=== PATIENT | female | born 1940 | race Caucasian/White ===

== ENCOUNTER → 2018-05-20 10:38 | Outpatient (CLI) | payer MEDICARE, BC, SELFPAY ==
--- NOTE | 2018-05-20 | DI.CT.S_ITS ---
PROCEDURE: CT KIDNEY URETER BLADDER (KUB) INDICATIONS: HYDRONEPHROSIS TECHNIQUE: Noncontrast 5 mm thick sections acquired from the diaphragms to the symphysis. 5 mm thick coronal and sagittal reformats were then performed. For radiation dose reduction, the following was used: automated exposure control, adjustment of mA and/or kV according to patient size. COMPARISON: [facility], [place], PET/CT WHOLE BODY EXTENDED, 08/18/2017, 10:11. [facility], CT, THORAX WITHOUT CONTRAST, 07/22/2017, 14:07. [facility], CT, KIDNEY/ URETER/BLADDER, 07/14/2017, 9:49. FINDINGS: Image quality: Excellent. Lung bases: There is increase in size of a partially visualized right lower lobe spiculated nodule measuring up to 2.1 x 1.7 cm in transverse dimension. Heart size is normal. Urinary system: There is moderate right hydronephrosis redemonstrated with a transition at the ureteropelvic junction, similar in appearance to the prior study. There is iso-to slightly hyperattenuation redemonstrated within the right renal collecting system. There is a new right ureteral stent with the proximal coil in the renal pelvis and the distal component in the urinary bladder. Ureters are non-distended. No calcified renal stones. There is no left hydronephrosis. Bilateral renal cysts are redemonstrated. Bladder wall thickness is normal; no calcified bladder stones. Other solid organs: Liver is normal in size. Gallbladder is nondistended without calcified gallstones. Pancreas is normal in contours. Spleen is normal in size. No adrenal nodules. Peritoneum and bowel: Unenhanced bowel loops demonstrate normal wall thickness and caliber. The appendix is normal in appearance. There is colonic diverticulosis without diverticulitis. No free fluid or air. Nodes and vessels: No retroperitoneal or mesenteric adenopathy by size criteria. Aorta and inferior vena cava are normal in caliber. Abdominal wall: No ventral hernias. Pelvis: No free pelvic fluid. No inguinal hernias or adenopathy. Bones: No suspicious bony lesions. There is an old left proximal femur fracture status post ORIF. There is a mild superior endplate compression deformity of the T11 vertebral body redemonstrated. IMPRESSION: 1. 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 Recommend histologic diagnosis. 2. Persistent moderate right hydronephrosis status post placement of a right ureteral stent. 3. Diverticulosis without acute diverticulitis. Dictated by: Rivera Clarke M.D. on 05/20/2018 at 11:36 Approved by: Rivera Clarke M.D. on 05/20/2018 at 12:05
== END ==
PROVIDERS: PCP Internal Medicine; Visit Provider Urology
DX: N13.30 Unspecified hydronephrosis (principal); K57.90 Diverticulosis of intestine, part unspecified, without perforation or abscess without bleeding; R91.1 Solitary pulmonary nodule
CPT/HCPCS: 74176

== ENCOUNTER → 2018-06-14 12:24 | Outpatient (CLI) | payer MEDICARE, BC, SELFPAY ==
[2018-06-14 13:06] LABS: Add Manual Diff / Slide Review NO; Basophils Percent Auto 0.2 % (0-2); Eosinophils Percent Auto 2.2 % (2-4); Hemoglobin 11.8 g/dL (12.0-16.0); Lymphocytes Percent Auto 23.3 % (25-40); Mean Corpuscular HGB Conc 33.6 % (30-36); Mean Corpuscular Hemoglobin 31.5 PG (26-34); Mean Corpuscular Volume 93.7 fL (80-100); Neutrophils Absolute Auto 2800 /uL (3000-5900); Neutrophils Percent Auto 62.3 % (50-75); Platelet Count 190 X10^3/uL (150-400); Red Blood Cell Count 3.73 X10^6/uL (4.0-5.2); Red Cell Distribution Width 13.8 % (11.6-14.8); White Blood Cell Count 4.5 X10^3/uL (4.5-11.0)
[2018-06-14 13:36] LABS: Phosphorous 4.4 mg/dL (2.8-4.1)
[2018-06-14 13:38] LABS: BUN Creatinine Ratio 14.3 (6-22); Blood Urea Nitrogen 50 mg/dL (7-17); Calcium 8.9 mg/dL (8.4-10.2); Carbon Dioxide 24 mmol/L (22-32); Chloride 106 mmol/L (98-107); Estimated Glomerular Filt Rate 12.7 mL/min (>60); Glucose 105 mg/dL (80-110); HEMOLYSIS < 15 (0-50); Potassium 4.9 mmol/L (3.4-5.1); Sodium 139 mmol/L (137-145)
[2018-06-14 13:50] LABS: Free T3, Triiodothyronine Free 2.29 pg/mL (2.77-5.27)
[2018-06-14 14:03] LABS: Thyroid Stimulating Hormone 2.59 uIU/mL (0.47-4.68)
[2018-06-14 14:11] LABS: Ferritin 18.2 ng/mL (11.1-264)
[2018-06-16 14:48] LABS: Parathyroid Hormone Int 145 pg/mL (14-64)
== END ==
PROVIDERS: PCP Internal Medicine; Referring Provider Urology; Visit Provider Student in an Organized Health Care Education/Training Program
DX: N05.9 Unspecified nephritic syndrome with unspecified morphologic changes (principal); I50.32 Chronic diastolic (congestive) heart failure; D50.0 Iron deficiency anemia secondary to blood loss (chronic); D64.9 Anemia, unspecified; E83.30 Disorder of phosphorus metabolism, unspecified; N25.81 Secondary hyperparathyroidism of renal origin; N13.30 Unspecified hydronephrosis; E03.9 Hypothyroidism, unspecified
CPT/HCPCS: 36415; 80048; 82728; 83880; 83970; 84100; 84439; 84443; 84481; 85025

== ENCOUNTER 2018-06-28 13:52 | Emergency (ER) | payer MEDICARE, BC, SELFPAY ==
[2018-06-28 13:56] VITALS: BP 114/54; PULSE 60; RESP 16; TEMP 36; O2SAT 96; BMI 25.8
--- NOTE | 2018-06-28 14:05 | ED.ALLEREA ---
HPI - Allergic Reaction <Rayne Alexandre PA-C - Last Filed: 06/28/18 21:09> General Chief complaint: Allergic Reaction Stated complaint: allergic rx to a medication Time Seen by Provider: 06/28/18 14:04 Source: patient Mode of arrival: ambulatory Limitations: no limitations History of Present Illness HPI narrative: This 77-year-old female comes in due to possible allergic reaction. She states that she took a dose of Cipro for UTI at about noon. She has not taken that in many years. About 30 min later, she started to have itching on her upper thighs that progressed down her legs, feet, and also affected her hands. She states that she started to get a little bit of rash on her inner thighs. She states that she took a dose of Benadryl and she does not think she has rash now, still has itching especially in her hands. She denies any sensation of her throat closing or swelling. She denies any facial swelling or dyspnea. She denies any wheeze. She denies any chest pain. She denies any nausea or vomiting. She states that during the course of this, she got up to do some dishes and felt ?dizzy?, which she describes as lightheaded, like she would pass out. She states that she sat down right away, otherwise ?I would of hit the floor, I saw the white light?, and she states that the dizziness persisted for about 0.5 hr. This has completely resolved and she states she is feeling fine now aside from the itching in her hands. She has not had any difficulty with walking (using her walker as usual) or extremity weakness. No difficulty with speech or swallowing. No headache or vision change Related Data Home Medications Medication Instructions Recorded Confirmed Disabled Parking Permit 1 ea MISCELLANEOUS DIRECTED 06/28/18 06/28/18 Walker: Heavy Duty Front Wheeled 1 units MISCELLANEOUS DIRECTED 06/28/18 06/28/18 calcitriol 1 cap PO MOWEFR 06/28/18 06/28/18 cholecalciferol (vitamin D3) 1,000 unit PO BID 06/28/18 06/28/18 [Vitamin D3] diphenhydramine HCl [Benadryl] 1 dose PO .ONCE 06/28/18 06/28/18 Previous Rx's Medication Instructions Recorded levothyroxine 25 mcg PO QAM #30 tab 12/23/16 metoprolol tartrate 25 mg PO BID #180 tab 02/21/18 hydralazine 25 mg tablet 25 mg PO BID #180 tab 05/09/18 Allergies Allergy/AdvReac Type Severity Reaction Status Date / Time ciprofloxacin [From Cipro] Allergy Severe severe Verified 06/28/18 14:55 itching erythromycin base Allergy Mild nausea Verified 06/28/18 14:55 [ERYTHROMYCIN BASE] Review of Systems <Rayne Alexandre PA-C - Last Filed: 06/28/18 21:09> Review of Systems All systems reviewed & are unremarkable except as noted in HPI and below Exam <Rayne Alexandre PA-C - Last Filed: 06/28/18 21:09> Narrative Exam Narrative: GENERAL APPEARANCE: Patient sitting comfortably, in no distress. HEAD: No sinus TTP. EYES: PERRL, EOMI. EARS: Normal auditory canals, right TM partially occluded by cerumen, TM is dull, left is normal ORAL CAVITY: Normal oropharynx. THROAT: PND noted, no erythema or exudate NECK/THYROID: Neck supple, full range of motion, no cervical lymphadenopathy. LUNGS: Clear to auscultation bilaterally HEART: RRR without murmur, nl S1, S2, no S3 or S4. ABDOMEN: Soft, nontender, nondistended, +bowel sounds x4 quadrants EXTREMITIES: 1+ pitting bilaterally, no cyanosis or calf tenderness NEUROLOGIC: Alert and oriented with normal speech and coordination, ambulates easily with her walker DERMATOLOGIC: No exanthem Initial Vital Signs Initial Vital Signs: Vital Signs Temperature 96.8 F L 06/28/18 13:56 Pulse Rate 60 06/28/18 13:56 Respiratory Rate 16 06/28/18 13:56 Blood Pressure 114/54 L 06/28/18 13:56 Pulse Oximetry 96 06/28/18 13:56 <Kaiden Cervantes DO - Last Filed: 06/29/18 07:13> Initial Vital Signs Initial Vital Signs: Vital Signs Temperature 96.8 F L 06/28/18 13:56 Pulse Rate 60 06/28/18 13:56 Respiratory Rate 16 06/28/18 13:56 Blood Pressure 114/54 L 06/28/18 13:56 Pulse Oximetry 96 06/28/18 13:56 Course <Rayne Alexandre PA-C - Last Filed: 06/28/18 21:09> Additional Information: Patient reported feeling markedly better after receiving Benadryl and Solu-Medrol. She states exanthem had resolved and she felt ready to go home. She did not have any lightheadedness while here, nor any neuro deficit or cardiopulmonary complaints. Reviewed findings with Dr. Cervantes who agreed with d/c plan Orders Ordered: Discontinued Medications Diphenhydramine HCl (Benadryl) 25 mg IV NOW ONE Stop: 06/28/18 14:34 Last Admin: 06/28/18 14:56 Dose: 25 mg Sodium Chloride (Normal Saline 0.9%) 1,000 mls @ 1,000 mls/hr IV BOLUS ONE Stop: 06/28/18 15:32 Last Infusion: 06/28/18 16:14 Dose: 0 mls/hr Admin: 06/28/18 14:56 Dose: 1,000 mls/hr Methylprednisolone (Solu-Medrol 125 Mg Vial) 60 mg IV NOW ONE Stop: 06/28/18 14:34 Last Admin: 06/28/18 14:55 Dose: 60 mg Vital Signs - 8 hr 06/28/18 13:56 06/28/18 14:53 06/28/18 15:30 Temperature 96.8 F L Pulse Rate 60 61 71 Respiratory Rate 16 13 13 Blood Pressure 114/54 L Blood Pressure [Right Arm] 140/60 H 139/61 H Pulse Oximetry 96 99 98 06/28/18 16:04 Temperature Pulse Rate 74 Respiratory Rate 13 Blood Pressure Blood Pressure [Right Arm] 142/57 H Pulse Oximetry 100 <Kaiden Cervantes DO - Last Filed: 06/29/18 07:13> Orders Ordered: Discontinued Medications Diphenhydramine HCl (Benadryl) 25 mg IV NOW ONE Stop: 06/28/18 14:34 Last Admin: 06/28/18 14:56 Dose: 25 mg Sodium Chloride (Normal Saline 0.9%) 1,000 mls @ 1,000 mls/hr IV BOLUS ONE Stop: 06/28/18 15:32 Last Infusion: 06/28/18 16:14 Dose: 0 mls/hr Admin: 06/28/18 14:56 Dose: 1,000 mls/hr Methylprednisolone (Solu-Medrol 125 Mg Vial) 60 mg IV NOW ONE Stop: 06/28/18 14:34 Last Admin: 06/28/18 14:55 Dose: 60 mg Vital Signs - 8 hr 06/28/18 13:56 06/28/18 14:53 06/28/18 15:30 Temperature 96.8 F L Pulse Rate 60 61 71 Respiratory Rate 16 13 13 Blood Pressure 114/54 L Blood Pressure [Right Arm] 140/60 H 139/61 H Pulse Oximetry 96 99 98 06/28/18 16:04 Temperature Pulse Rate 74 Respiratory Rate 13 Blood Pressure Blood Pressure [Right Arm] 142/57 H Pulse Oximetry 100 MDM - Allergic Reaction <Rayne Alexandre PA-C - Last Filed: 06/28/18 21:09> Lab Data Result diagrams: 06/28/18 14:45 06/28/18 14:45 Lab Results 06/28/18 06/28/18 Range/Units 14:45 14:45 WBC 7.5 (4.5-11.0) X10^3/uL RBC 3.95 L (4.0-5.2) X10^6/uL Hgb 12.4 (12.0-16.0) g/dL Hct 37.1 (36-46) % MCV 93.9 (80-100) fL MCH 31.4 (26-34) PG MCHC 33.5 (30-36) % RDW 13.8 (11.6-14.8) % Plt Count 210 (150-400) X10^3/uL Neut % (Auto) 76.3 H (50-75) % Lymph % (Auto) 12.6 L (25-40) % [place] % (Auto) 9.3 (3-14) % Eos % (Auto) 1.2 L (2-4) % Baso % (Auto) 0.6 (0-2) % Neut # (Auto) 5700 (7539-5064) /uL Sodium 137 (137-145) mmol/L Potassium 4.6 (3.4-5.1) mmol/L Chloride 106 (98-107) mmol/L Carbon Dioxide 22 (22-32) mmol/L BUN 58 H (7-17) mg/dL Creatinine 3.40 H (0.52-1.04) mg/dL Estimated GFR 13.1 L (>60) mL/min BUN/Creatinine Ratio 17.1 (6-22) Glucose 106 (80-110) mg/dL Calcium 8.7 (8.4-10.2) mg/dL Total Bilirubin 0.5 (0.2-1.3) mg/dL AST 16 (14-36) IU/L ALT 17 (9-52) IU/L Alkaline Phosphatase 64 (38-126) U/L Total Creatine Kinase 131 (30-135) U/L CK-MB (CK-2) 2.30 (<2.37) ng/mL CK-MB (CK-2) Rel Index 1.8 (1.5-5.0) % Troponin I < 0.012 (0.01-0.034) ng/mL Total Protein 6.3 (6.3-8.2) g/dL Albumin 3.7 (3.5-5.0) g/dL Globulin 2.6 (1.7-4.1) g/dL Albumin/Globulin Ratio 1.4 (1.0-2.8) ECG Data Attestation: I personally reviewed and interpreted this ECG as follows: (Normal sinus rhythm with a rate 68, normal axis, chronic ST changes in V4) Prior ECG tracings: available for review <Kaiden Cervantes DO - Last Filed: 06/29/18 07:13> Lab Data Lab Results 06/28/18 06/28/18 Range/Units 14:45 14:45 WBC 7.5 (4.5-11.0) X10^3/uL RBC 3.95 L (4.0-5.2) X10^6/uL Hgb 12.4 (12.0-16.0) g/dL Hct 37.1 (36-46) % MCV 93.9 (80-100) fL MCH 31.4 (26-34) PG MCHC 33.5 (30-36) % RDW 13.8 (11.6-14.8) % Plt Count 210 (150-400) X10^3/uL Neut % (Auto) 76.3 H (50-75) % Lymph % (Auto) 12.6 L (25-40) % [place] % (Auto) 9.3 (3-14) % Eos % (Auto) 1.2 L (2-4) % Baso % (Auto) 0.6 (0-2) % Neut # (Auto) 5700 (4487-0874) /uL Sodium 137 (137-145) mmol/L Potassium 4.6 (3.4-5.1) mmol/L Chloride 106 (98-107) mmol/L Carbon Dioxide 22 (22-32) mmol/L BUN 58 H (7-17) mg/dL Creatinine 3.40 H (0.52-1.04) mg/dL Estimated GFR 13.1 L (>60) mL/min BUN/Creatinine Ratio 17.1 (6-22) Glucose 106 (80-110) mg/dL Calcium 8.7 (8.4-10.2) mg/dL Total Bilirubin 0.5 (0.2-1.3) mg/dL AST 16 (14-36) IU/L ALT 17 (9-52) IU/L Alkaline Phosphatase 64 (38-126) U/L Total Creatine Kinase 131 (30-135) U/L CK-MB (CK-2) 2.30 (<2.37) ng/mL CK-MB (CK-2) Rel Index 1.8 (1.5-5.0) % Troponin I < 0.012 (0.01-0.034) ng/mL Total Protein 6.3 (6.3-8.2) g/dL Albumin 3.7 (3.5-5.0) g/dL Globulin 2.6 (1.7-4.1) g/dL Albumin/Globulin Ratio 1.4 (1.0-2.8) Discharge Plan Departure Patient Disposition: Home Clinical Impression: Allergic reaction caused by a drug, Syncope, near Discharge Date/Time: 06/28/18 16:27 Interventions: ED Discharge Assessment Last Done: 06/28/18 16:27 Instructions: DI for Adverse Drug Reaction -- Allergic Activity Restrictions/Additional Instructions: There is not any evidence of a heart or neurologic problem today on your exam or testing. You should return if you have lightheadedness again or other new worsening symptoms. Most likely this was part of the allergic reaction you had and it is okay to monitor at home since this is improved. Please check with Dr. Araiza's office and let them know that you have had absolutely no urinary symptoms despite not starting the antibiotic last week, and ask if this is really needed or whether they think you could have bacteria in the urine without actual infection Prescriptions: No Action levothyroxine 25 MCG tablet 25 mcg PO QAM Qty: 30 RF: 5 metoprolol tartrate 25 MG tablet 25 mg PO BID Qty: 180 RF: 1 hydralazine 25 mg tablet 25 mg PO BID Qty: 180 RF: 0 calcitriol 0.25 mcg capsule 1 cap PO MOWEFR RF: 0 Disabled Parking Permit 1 ea miscellaneous DIRECTED RF: 0 Walker: Heavy Duty Front Wheeled 1 units miscellaneous DIRECTED RF: 0 diphenhydramine HCl [Benadryl] 25 mg Capsule 1 dose PO .ONCE RF: 0 cholecalciferol (vitamin D3) [Vitamin D3] 1,000 unit Capsule 1,000 unit PO BID RF: 0 Referrals: Delvin Araiza MD [Non-Staff] - Bhavani Ledesma ARNP [Primary Care Provider] - <Kaiden Cervantes DO - Last Filed: 06/29/18 07:13> Cosign ED Attending Octavio Attestation: I was available for consultation during this patient's emergency department encounter
[2018-06-28 14:53] VITALS: BP 140/60; PULSE 61; RESP 13; O2SAT 99
[2018-06-28 14:54] LABS: Add Manual Diff / Slide Review NO; Basophils Percent Auto 0.6 % (0-2); Eosinophils Percent Auto 1.2 % (2-4); Hematocrit 37.1 % (36-46); Hemoglobin 12.4 g/dL (12.0-16.0); Lymphocytes Percent Auto 12.6 % (25-40); Mean Corpuscular HGB Conc 33.5 % (30-36); Mean Corpuscular Hemoglobin 31.4 PG (26-34); Mean Corpuscular Volume 93.9 fL (80-100); Monocytes Percent Auto 9.3 % (3-14); Neutrophils Absolute Auto 5700 /uL (3000-5900); Neutrophils Percent Auto 76.3 % (50-75); Platelet Count 210 X10^3/uL (150-400); Red Blood Cell Count 3.95 X10^6/uL (4.0-5.2); Red Cell Distribution Width 13.8 % (11.6-14.8); White Blood Cell Count 7.5 X10^3/uL (4.5-11.0)
[2018-06-28] MEDS: methylPREDNISolone 125 MG/2 ML VIAL 60 MG IV (14:55)
[2018-06-28] MEDS: diphenhydrAMINE 50 MG/ML VIAL 25 MG IV (14:56)
[2018-06-28] MEDS: SODIUM CHLORIDE 0.9% 1,000 ML 1000 ML IV (14:56)
[2018-06-28 15:10] LABS: Alanine Aminotransferase 17 IU/L (9-52); Albumin 3.7 g/dL (3.5-5.0); Albumin Globulin Ratio 1.4 (1.0-2.8); Alkaline Phosphatase 64 U/L (38-126); Aspartate Aminotransferase 16 IU/L (14-36); BUN Creatinine Ratio 17.1 (6-22); Bilirubin Total 0.5 mg/dL (0.2-1.3); Blood Urea Nitrogen 58 mg/dL (7-17); Calcium 8.7 mg/dL (8.4-10.2); Carbon Dioxide 22 mmol/L (22-32); Chloride 106 mmol/L (98-107); Creatine Kinase 131 U/L (30-135); Estimated Glomerular Filt Rate 13.1 mL/min (>60); Globulin 2.6 g/dL (1.7-4.1); Glucose 106 mg/dL (80-110); Potassium 4.6 mmol/L (3.4-5.1); Sodium 137 mmol/L (137-145); Total Protein 6.3 g/dL (6.3-8.2)
[2018-06-28 15:22] LABS: Troponin I < 0.012 ng/mL (0.01-0.034)
[2018-06-28 15:25] LABS: CKMB % Relative Index 1.8 % (1.5-5.0); HEMOLYSIS 29 (0-50)
[2018-06-28 15:30] VITALS: BP 139/61; PULSE 71; RESP 13; O2SAT 98
[2018-06-28 16:04] VITALS: BP 142/57; PULSE 74; RESP 13; O2SAT 100
== END 2018-06-28 16:27 | disposition home or self-care (01) ==
PROVIDERS: Emergency Provider Internal Medicine; PCP Internal Medicine
DX: R21 Rash and other nonspecific skin eruption (principal); R55 Syncope and collapse; T36.8X5A Adverse effect of other systemic antibiotics, initial encounter
CPT/HCPCS: 36591; 80053; 82550; 82553; 84484; 85025; 93005; 93010; 96361; 96374; 96375; 99283; 99284; J1200; J2930

== ENCOUNTER 2018-07-07 11:00 | Day surgery (SDC) | payer MEDICARE, BC, SELFPAY ==
[2018-07-07] VITALS (8 sets, daily range): BP systolic 119–153; BP diastolic 63–75; PULSE 60–80; RESP 9–20; TEMP 36.3; O2SAT 97–99; BMI 55.2
--- NOTE | 2018-07-07 12:43 | PM.PREOP ---
Pre-operative Note Interval Note Pre-op Check: Yes History & Physical Reviewed by Physician and Yes Exam Performed Changes: Yes H&P completed within 30 days and has changed as indicated here:: patient had a CT scan in [place] and not a PET scan. I reviewed that but there was no helpful information regarding her lung lesions and the differential diagnosis.
[2018-07-07] MEDS: METOPROLOL TARTRATE 5 MG/5 ML INJ IV (13:19)
[2018-07-07] MEDS: GLUCAGON,HUMAN RECOMBINANT 1 MG/ML VIAL IV (13:40)
[2018-07-07] MEDS: fentaNYL 250 MCG/5 ML INJ IV (14:02)
[2018-07-07] MEDS: MIDAZOLAM 5 MG/5 ML VIAL IV (14:03)
--- NOTE | 2018-07-07 14:07 | PM.OP.ENDO ---
Operative Date/Time/Diagnoses Date of procedure: 07/07/18 Time of procedure: 14:07 Pre-op diagnosis: positive colo guard test Post-op diagnosis: same ( extensive diverticulosis throughout the colon. relative sparing of the transverse colon. sigmoid narrowing) Procedure & Clinicians Study performed: colonoscopy Same procedure as scheduled: Yes Indications: positive colo Garde test Surgeon: Paul Nuñez Procedure Notes SCOAP/Timeout: performed Procedure in detail: The patient was placed in the left lateral decubitus position and underwent IV sedation directed by the surgeon consisting of fentanyl and Versed. Digital exam was[ unremarkable]. The scope was inserted and advanced through the rectum into the sigmoid, where I encountered stricturing and tortuosity. I reached a point where I could not advance the scope and decided to switch to the more flexible and slightly smaller pediatric scope. The regular scope was removed and the pediatric scope inserted. Even with this I had great difficulty maneuvering through the sigmoid colon. I repositioned the patient multiple times and ultimately was able to get through into the descending colon. Thedescending, transverse, and ascending colon were traversed. The transverse colon had fewer diverticuli than elsewhere. The cecum was reached identified by the ileocecal valve and the appendiceal opening. The scope was gradually brought out. no Polyps were found. The scope ultimately was retroflexed in the rectum. The appearance was[ normal]. The scope was removed and the patient tolerated the procedure well Scope withdrawal time: 9 minutes Sedation minutes: 43 Findings: diverticulosis ( graf colonic with heaviest concentration in the sigmoid and the ascending colon.) and stricture ( Mild to moderate in the sigmoid colon) Specimen(s): none sent Complications: none Recommendations: High fiber diet and Other recommendation ( no further screening colonoscopy is recommended due to age) Plan for aftercare: follow-up with primary care provider and urologist Follow up: as needed Disposition: PACU
--- NOTE | 2018-07-07 17:12 | SUR.PHASEII ---
pt dressed ready to go and vomited up cranberry juice, felt better, steady on feet , requests to go at 1510
--- NOTE | 2018-07-07 17:15 | SUR.PHASEII ---
duplicate vitals entered , at 1652 and 1709 , vitals were from 1445
== END 2018-07-07 15:15 | disposition home or self-care (01) ==
PROVIDERS: PCP Internal Medicine; Visit Provider Specialist
PROC: 0DJD8ZZ Inspection of Lower Intestinal Tract, Via Natural or Artificial Opening Endoscopic (ICD-10-PCS; CPT 45378; principal; 2018-07-07 12:30)
DX: R19.5 Other fecal abnormalities (principal); K57.30 Diverticulosis of large intestine without perforation or abscess without bleeding; Z87.891 Personal history of nicotine dependence
CPT/HCPCS: 45378; 99152; 99153; J1610; J2250; J3010

== ENCOUNTER → 2018-07-26 09:30 | Outpatient (CLI) | payer MEDICARE, BC, SELFPAY ==
[2018-07-26 11:04] LABS: Platelet Count 220 X10^3/uL (150-400)
[2018-07-26 11:13] LABS: Prothrombin Time 10.4 SECONDS (10.1-12.7)
[2018-07-26 11:20] LABS: BUN Creatinine Ratio 18.3 (6-22); Blood Urea Nitrogen 64 mg/dL (7-17); Calcium 9.2 mg/dL (8.4-10.2); Carbon Dioxide 27 mmol/L (22-32); Chloride 104 mmol/L (98-107); Estimated Glomerular Filt Rate 12.7 mL/min (>60); Glucose 89 mg/dL (80-110); HEMOLYSIS < 15 (0-50); Potassium 5.1 mmol/L (3.4-5.1); Sodium 142 mmol/L (137-145)
== END ==
PROVIDERS: PCP Internal Medicine; Visit Provider Student in an Organized Health Care Education/Training Program
DX: C64.9 Malignant neoplasm of unspecified kidney, except renal pelvis (principal); N05.9 Unspecified nephritic syndrome with unspecified morphologic changes; I50.32 Chronic diastolic (congestive) heart failure; C44.90 Unspecified malignant neoplasm of skin, unspecified
CPT/HCPCS: 80048; 83880; 85049; 85610

== ENCOUNTER → 2018-08-02 13:58 | Outpatient (CLI) | payer MEDICARE, BC, SELFPAY ==
--- NOTE | 2018-08-02 | DI.RAD.S_ITS ---
PROCEDURE: XR CHEST 2V INDICATIONS: HYPERVOLEMIA TECHNIQUE: 2 views of the chest were acquired. COMPARISON: [facility], CT, CT KIDNEY URETER BLADDER (KUB), 05/20/2018, 10:42. [facility], NM, PET NECK TO MID THIGH, 03/21/2018, 14:48. [facility], CR, CHEST 1 VIEW, 09/17/2017, 21:57. FINDINGS: Surgical changes and devices: There is a right shoulder prosthesis. A double-lumen dialysis catheter is present with the tip at the atriocaval junction. Lungs and pleura: There is a density in the right lower lobe medially. There is a calcified granuloma in the right lower lung zone. Pulmonary vascularity is increased but no confluent pulmonary edema. No focal consolidations. No pleural effusions or pneumothorax. Mediastinum: Mediastinal contours are normal. Heart size is normal. Bones and chest wall: No suspicious bony abnormalities. Soft tissues appear unremarkable. IMPRESSION: 1. Increased pulmonary vascularity may be secondary to volume overload. 2. A radiodensity is present in the right lower lobe medially. Recommend a short-term followup chest x-ray. If persists, chest CT is suggested for further motion. 3. Dialysis catheter tip is in the apical junction. Dictated by: Gudelia Clifford M.D. on 08/02/2018 at 16:33 Approved by: Gudelia Clifford M.D. on 08/02/2018 at 16:38
[2018-08-02 15:21] LABS: Hepatitis B Surface Antigen NEGATIVE s/c (NEGATIVE)
[2018-08-02 15:36] LABS: Hep C Virus Ab w/Reflex Quant NEGATIVE s/c (NEGATIVE)
[2018-08-04 14:17] LABS: Hepatitis B Core Antibody Nonreactive (Nonreactive)
[2018-08-05 07:14] LABS: Hepatitis B Surf Ab Qualitativ Nonreactive (Nonreactive)
== END ==
PROVIDERS: PCP Internal Medicine; Visit Provider Student in an Organized Health Care Education/Training Program
DX: B19.10 Unspecified viral hepatitis B without hepatic coma (principal); B17.10 Acute hepatitis C without hepatic coma; R06.02 Shortness of breath; E87.70 Fluid overload, unspecified
CPT/HCPCS: 36415; 71046; 86704; 86706; 86803; 87340

== ENCOUNTER → 2018-09-22 12:41 | Outpatient (CLI) | payer MEDICARE, BC, SELFPAY ==
[2018-09-22 13:26] LABS: Platelet Count 209 X10^3/uL (150-400)
[2018-09-22 13:34] LABS: Prothrombin Time 11.1 SECONDS (10.1-12.7)
== END ==
PROVIDERS: PCP Internal Medicine
DX: C64.9 Malignant neoplasm of unspecified kidney, except renal pelvis (principal)
CPT/HCPCS: 36415; 85049; 85610

== ENCOUNTER 2018-09-23 08:22 | Outpatient (CLI) | payer MEDICARE, BC, SELFPAY | END 2018-09-23 09:30 | PROVIDERS: PCP Internal Medicine | PROC: BB24ZZZ Computerized Tomography (CT Scan) of Bilateral Lungs (ICD-10-PCS; CPT 32408; principal; 2018-09-23 09:30) ==

== ENCOUNTER 2019-07-06 16:59 | Emergency (ER) | payer MEDICARE, BC, SELFPAY ==
[2019-07-06 17:10] VITALS: BP 164/68; PULSE 92; RESP 19; TEMP 36.9; O2SAT 97; BMI 26.9
[2019-07-06 17:20] LABS: Add Manual Diff / Slide Review NO; Basophils Absolute Auto 0 /uL (0-100); Basophils Percent Auto 0.8 % (0-2); Eosinophils Absolute Auto 300 /uL (0-450); Eosinophils Percent Auto 7.7 % (2-4); Hemoglobin 10.8 g/dL (12.0-16.0); Lymphocytes Absolute Auto 500 /uL (1100-4500); Lymphocytes Percent Auto 10.4 % (25-40); Mean Corpuscular HGB Conc 33.9 % (30-36); Mean Corpuscular Hemoglobin 38.1 PG (26-34); Mean Corpuscular Volume 112.3 fL (80-100); Monocytes Absolute Auto 700 /uL (0-900); Neutrophils Absolute Auto 2900 /uL (1500-7000); Neutrophils Percent Auto 66.1 % (50-75); Platelet Count 110 X10^3/uL (150-400); Red Blood Cell Count 2.85 X10^6/uL (4.0-5.2); Red Cell Distribution Width 18.6 % (11.6-14.8); White Blood Cell Count 4.3 X10^3/uL (4.5-11.0)
[2019-07-06 17:25] LABS: Alanine Aminotransferase 24 IU/L (9-52); Albumin 3.6 g/dL (3.5-5.0); Albumin Globulin Ratio 1.2 (1.0-2.8); Alkaline Phosphatase 127 U/L (38-126); Aspartate Aminotransferase 23 IU/L (14-36); BUN Creatinine Ratio 4.7 (6-22); Bilirubin Total 0.6 mg/dL (0.2-1.3); Blood Urea Nitrogen 18 mg/dL (7-17); Calcium 8.6 mg/dL (8.4-10.2); Carbon Dioxide 29 mmol/L (22-32); Chloride 99 mmol/L (98-107); Estimated Glomerular Filt Rate 11.5 mL/min (>60); Globulin 2.9 g/dL (1.7-4.1); Glucose 93 mg/dL (80-110); HEMOLYSIS < 15 (0-50); Potassium 3.3 mmol/L (3.4-5.1); Sodium 139 mmol/L (137-145); Total Protein 6.5 g/dL (6.3-8.2)
[2019-07-06 17:39] LABS: Anisocytosis 1+; Macrocytosis 3+; Polychromasia 2+
--- NOTE | 2019-07-06 18:16 | ED_ITS ---
HPI - Arrhythmia/Palpitations General Chief Complaint: Arrhythmia/Palpitations Stated Complaint: Afib Time Seen by Provider: 07/06/19 17:23 Source: patient and EMS Mode of arrival: EMS Limitations: no limitations History of Present Illness HPI narrative: Patient comes emergency department after developing atrial fib rillation with rapid ventricular response during dialysis today. Patient states that she was in dialysis when her heart rate went up to 150. She got about half of her dialysis treatment, and her dialysis was stopped and patient was sent here via EMS. Patient states that she did not have any chest pain or shortness of breath during the episode. No nausea or vomiting. Patient states that when she got here, her heart rate and rhythm converted to normal. Patient reports she is feeling completely better now. Patient has a longstanding history of him paroxysmal atrial fibrillation. Related Data Home Medications Medication Instructions Recorded Confirmed Disabled Parking Permit 1 ea MISCELLANEOUS DIRECTED 06/28/18 07/06/19 Walker: Heavy Duty Front Wheeled 1 units MISCELLANEOUS DIRECTED 06/28/18 07/06/19 calcitriol 1 cap PO DIRECTED 06/28/18 07/06/19 cholecalciferol (vitamin D3) 2,000 unit PO DAILY 06/28/18 07/06/19 [Vitamin D3] furosemide 40 mg PO DAILY 08/10/18 07/06/19 metoprolol tartrate 50 mg PO BID 06/27/19 07/06/19 multivitamin 1 cap PO QAM 06/27/19 07/06/19 epoetin beta, methoxy peg [Mircera] 150 mcg SUBCUT WEEKLY 07/06/19 07/06/19 hydralazine 25 mg PO BID 07/06/19 07/06/19 hydrocortisone 1 applic TOPICAL TID 07/06/19 07/06/19 warfarin 2.5 mg PO 4XW 07/06/19 07/06/19 warfarin 5 mg PO 3XW 07/06/19 07/06/19 Previous Rx's Medication Instructions Recorded levothyroxine 25 mcg PO QAM #30 tab 12/23/16 Allergies Allergy/AdvReac Type Severity Reaction Status Date / Time ciprofloxacin [From Cipro] Allergy Severe severe Verified 10/11/18 15:48 itching erythromycin base Allergy Mild nausea Verified 10/11/18 15:48 [ERYTHROMYCIN BASE] Review of Systems Constitutional Constitutional: Denies chills, Denies fatigue, Denies fever(s), Denies frequent falls, Denies lethargy and Denies weakness Eyes Eyes: Denies change in vision, Denies eye discharge, Denies irritation and Denies loss of vision ENT Ears, Nose, Mouth, and Throat: Denies change in voice, Denies dizziness, Denies neck pain, Denies sore throat and Denies throat swelling Cardiovascular Cardiovascular: Denies chest pain, Denies irregular heart rhythm, Denies lighthe adedness, Denies palpitations, Denies dyspnea, Denies dyspnea on exertion and Denies orthopnea Respiratory Respiratory: Denies cough, Denies dyspnea, Denies dyspnea on exertion and Denies wheezing Gastrointestinal Gastrointestinal: Denies abdominal pain, Denies change in bowel habits, Denies diarrhea, Denies nausea and Denies vomiting Genitourinary Genitourinary: Denies hematuria, Denies flank pain, Denies urinary incontinence and Denies urinary urgency Musculoskeletal Musculoskeletal: Denies back pain, Denies muscle weakness, Denies neck pain, Denies numbness and Denies tingling Integumentary/Breasts Skin/Breast: Denies pruritus, Denies erythema, Denies rash and Denies wounds Neurologic Neurologic: Denies behavioral changes, Denies confusion, Denies dizziness, Denies frequent falls, Denies loss of vision, Denies numbness, Denies tingling and Denies weakness Psychiatric Psychiatric: Denies anxiety, Denies behavioral changes, Denies confusion, Denies depression, Denies homicidal ideation and Denies suicidal ideation Endocrine Endocrine: Denies fatigue, Denies flushing and Denies palpitations Hematologic/Lymphatic Hematologic/Lymphatic: Denies easy bruising Allergic/Immunologic Allergic/Immunologic: Denies urticaria, Denies throat swelling and Denies wheezing [facility] Medical History (Updated 07/06/19 @ 18:16 by Emily Whitman MD) Acne (Resolved) Cataract (Chronic ~1994) Foot pain (Chronic ~2008) Hemorrhoid (Chronic) Hepatitis (Chronic) History of nephrectomy, unilateral (Acute) Hypertension (Chronic ~1988) Kidney failure (Acute) Lung nodule (Acute) Measles (Resolved ~1961) Mumps (Resolved ~1959) Osteopenia (Chronic) Restless leg syndrome (Chronic ~2008) Seasonal allergies (Chronic) Skin cancer (Chronic) Tinnitus (Chronic ~1955) Transitional cell carcinoma of kidney (Acute) Surgical History (Updated 06/27/19 @ 12:55 by Demarcus Velez MD) Anesthesia (Resolved) History of tonsillectomy (~1944) Status post tubal ligation (~1974) Family History Brother Age: 75 Diabetes mellitus Heart disease Brother Age: 69 Diabetes mellitus Heart disease Hypertension Stroke Father Skin cancer Hypertension Heart disease Cancer Stroke Mother Skin cancer Diabetes mellitus Hypertension Osteoporosis Gallstones Cancer Stroke Social History (Updated 10/11/18 @ 18:35 by Paul Nuñez MD) marital status: household members: spouse Smoking Status: Former smoker alcohol intake: current Social History (Updated 10/11/18 @ 18:35 by Paul Nuñez MD) marital status: household members: spouse Smoking Status: Former smoker alcohol intake: current Exam Initial Vital Signs Initial Vital Signs: Vital Signs Temperature 98.5 F 07/06/19 17:10 Pulse Rate 92 H 07/06/19 17:10 Respiratory Rate 19 07/06/19 17:10 Blood Pressure 164/68 H 07/06/19 17:10 Pulse Oximetry 97 07/06/19 17:10 Const General: cooperative and well developed Nutritional Appearance: well nourished Orientation: alert, awake, oriented x3 and not confused [facility] Head: normocephalic and atraumatic Ears: external ears normal Nose: external nose normal and No nasal discharge Face and sinus: face symmetric and No dry mucous membranes Mouth: oral mucosae normal and moist mucous membranes Teeth and gingiva: dentition normal Eyes General: appearance normal, both eyes and all related structures Eyelids: eyelids normal Conjunctivae: conjunctivae normal Sclera: sclerae normal Pupils: PERRL EOM: EOM intact bilaterally Neck Neck: normal visual inspection, trachea midline, No lymphadenopathy, No midline deformity and No JVD Lymphatic: No lymphedema Chest Chest: normal inspection of the chest Resp Effort & Inspection: normal respiratory effort, able to speak in complete sentences, no respiratory distress and no use of accessory muscles Auscultation: clear to auscultation bilaterally, no rales, no rhonchi and no wheezes Cardio Rate: regular rate Rhythm: regular rhythm Heart Sounds: no click, no gallops, no murmurs and no rubs Pulses: normal peripheral pulses GI Inspection: non-distended Palpation: soft, no hepatosplenomegaly, No guarding, No pulsatile mass and No tender Auscultation: normal bowel sounds Back/Spine/Pelvis Back: No CVA tenderness Cervical Spine: cervical ROM normal and No pain with cervical ROM Thoracic/Lumbar Spine: thoracic and lumbar spine normal to inspection Skin General: no rashes or lesions noted, No jaundice and No petechiae Neuro General: alert, oriented x3, gait normal and no focal motor deficits Speech: speech normal Extrem General: full ROM, no clubbing, cyanosis or edema, no pedal edema and no calf tenderness Psych Appearance: well kempt Mental Status: mental status grossly normal Attitude: cooperative Thought Content: normal and suicidality Judgment: judgment good Course Course Course Narrative: Patient's laboratory studies were unremarkable, and patient wa s completely asymptomatic by the time of her arrival in the emergency department. She was very well-appearing, and without complaints. I felt the patient was stable for discharge home. We have discussed home management of symptoms, as well as the usual indications for return. Orders Ordered: ED Orders 07/06/19 16:50 CBC Auto Diff [Complete Blood Count AUTO DIFF] Stat Comprehensive Metabolic Panel Stat 07/06/19 17:04 EKG-12 Lead Routine Vital Signs Vital signs: Vital Signs - 8 hr 07/06/19 17:10 Temperature 98.5 F Pulse Rate 92 H Respiratory Rate 19 Blood Pressure 164/68 H Pulse Oximetry 97 MDM - Arrhythmia/Palpitations Medical Records Attestation: I reviewed the patient's medical records. Lab Data Attestation: I reviewed the patient's lab results. Result diagrams: 07/06/19 16:50 07/06/19 16:50 Labs: Lab Results 07/06/19 07/06/19 Range/Units 16:50 16:50 WBC 4.3 L (4.5-11.0) X10^3/uL RBC 2.85 L (4.0-5.2) X10^6/uL Hgb 10.8 L (12.0-16.0) g/dL Hct 32.0 L (36-46) % MCV 112.3 H (80-100) fL MCH 38.1 H (26-34) PG MCHC 33.9 (30-36) % RDW 18.6 H (11.6-14.8) % Plt Count 110 L (150-400) X10^3/uL Neut % (Auto) 66.1 (50-75) % Lymph % (Auto) 10.4 L (25-40) % [place] % (Auto) 15.0 H (3-14) % Eos % (Auto) 7.7 H (2-4) % Baso % (Auto) 0.8 (0-2) % Neut # (Auto) 2900 (6410-4368) /uL Lymph # (Auto) 500 L (8315-7009) /uL [place] # (Auto) 700 (0-900) /uL Eos # (Auto) 300 (0-450) /uL Baso # (Auto) 0 (0-100) /uL RBC Morphology See below Polychromasia 2+ H Anisocytosis 1+ H Macrocytosis 3+ H Sodium 139 (137-145) mmol/L Potassium 3.3 L (3.4-5.1) mmol/L Chloride 99 (98-107) mmol/L Carbon Dioxide 29 (22-32) mmol/L BUN 18 H (7-17) mg/dL Creatinine 3.80 H (0.52-1.04) mg/dL Estimated GFR 11.5 L (>60) mL/min BUN/Creatinine Ratio 4.7 L (6-22) Glucose 93 (80-110) mg/dL Calcium 8.6 (8.4-10.2) mg/dL Total Bilirubin 0.6 (0.2-1.3) mg/dL AST 23 (14-36) IU/L ALT 24 (9-52) IU/L Alkaline Phosphatase 127 H (38-126) U/L Total Protein 6.5 (6.3-8.2) g/dL Albumin 3.6 (3.5-5.0) g/dL Globulin 2.9 (1.7-4.1) g/dL Albumin/Globulin Ratio 1.2 (1.0-2.8) Discharge Plan Departure Patient Disposition: Home Clinical Impression: AF (paroxysmal atrial fibrillation), Atrial fibrillation with rapid ventricular response Discharge Date/Time: 07/06/19 18:30 Instructions: DI for Atrial Fibrillation Activity Restrictions/Additional Instructions: Your labs are not remarkable for any significant abnormalities tonight, compared to normal for you. Please continue your plans to get dialysis on Wednesday, and take your medications, as usual. Prescriptions: No Action levothyroxine 25 MCG tablet 25 mcg PO QAM Qty: 30 RF: 5 calcitriol 0.25 mcg capsule 1 cap PO DIRECTED RF: 0 Disabled Parking Permit 1 ea miscellaneous DIRECTED RF: 0 Walker: Heavy Duty Front Wheeled 1 units miscellaneous DIRECTED RF: 0 cholecalciferol (vitamin D3) [Vitamin D3] 1,000 unit Capsule 2,000 unit PO DAILY RF: 0 furosemide 40 mg Tablet 40 mg PO DAILY RF: 0 metoprolol tartrate 25 mg tablet 50 mg PO BID RF: 0 multivitamin Capsule 1 cap PO QAM RF: 0 hydralazine 25 mg tablet 25 mg PO BID RF: 0 warfarin 5 mg tablet 5 mg PO 3XW RF: 0 warfarin 5 mg tablet 2.5 mg PO 4XW RF: 0 hydrocortisone 2.5 % cream 1 applic TOPICAL TID RF: 0 Mircera 75 mcg/0.3 mL Syringe 150 mcg SUBCUT WEEKLY RF: 0 Referrals: Bhavani Ledesma ARNP [Primary Care Provider] -
[2019-07-06 18:28] VITALS: BP 133/61; PULSE 78; RESP 16; O2SAT 97
== END 2019-07-06 18:30 | disposition home or self-care (01) ==
PROVIDERS: Emergency Provider Emergency Medicine; Family Provider Internal Medicine; PCP Internal Medicine
DX: I48.0 Paroxysmal atrial fibrillation (principal); I48.91 Unspecified atrial fibrillation; Z79.01 Long term (current) use of anticoagulants
CPT/HCPCS: 80053; 85025; 93005; 99282; 99284

== ENCOUNTER → 2019-07-21 06:47 | Outpatient (CLI) | payer MEDICARE, BC, SELFPAY ==
--- NOTE | 2019-07-21 | DI.US.S_ITS ---
PROCEDURE: US CAROTID DOPPLER BI INDICATIONS: LEFT BRUIT TECHNIQUE: Color and pulse Doppler interrogation was performed of both carotid systems, with image documentation and velocity measurements. COMPARISON: [facility], , CAROTID ARTERY DOPPLER BILAT, 09/06/2008, 13:07. FINDINGS: Stenosis calculations are based on SRU (Society of Radiologists in Ultrasound) criteria. Right side: Brachial blood pressure: Not recorded Common carotid artery peak systolic velocity: 59 cm/sec. Internal carotid artery peak systolic velocity: 71 cm/sec. Internal carotid artery end diastolic velocity: 18 cm/sec. External carotid artery peak systolic velocity: 58 cm/sec. ICA/CCA peak systolic ratio: 1.2. Joyce scale imaging description: Mild scattered plaque. Percent internal carotid artery stenosis: Less than 50%. Vertebral artery: Flow direction is antegrade. Left side: Brachial blood pressure: Not recorded. Common carotid artery peak systolic velocity: 85 cm/sec. Internal carotid artery peak systolic velocity: 77 cm/sec. Internal carotid artery end diastolic velocity: 19 cm/sec. External carotid artery peak systolic velocity: 60 cm/sec. ICA/CCA peak systolic ratio: 0.9. Joyce scale imaging description: Mild scattered plaque. Percent internal carotid artery stenosis: Less than 50%. Vertebral artery: Flow direction is antegrade. IMPRESSION: 1. Less than 50% bilateral internal carotid artery stenosis. Dictated by: Joel MARTE Interpreted: Elsie Call MD on 07/21/2019 at 8:32 Approved by: Elsie Call M.D. on 07/21/2019 at 16:07
--- NOTE | 2019-07-21 | DI.ECHO.S_ITS ---
[place] [facility]---------+ [facility] +---------+ : : [address] [place] : : : : [id number] : : : : Phone: [phone] Echocardiogram Report + + :Name: FARRAH GASPAR Study Date: 07/21/2019 Height: 65 in : :[facility] Weight: 175 lb : : Gender: Female BSA: 1.9 m2 : :: 1940 Age: 78 yrs BP: 140/60 mmHg: :Reason For Study: Murmur : :Ordering Physician: Annette : :Alicia Landaverde Performed By: Rosa Patel : :Referring: Bhavani Ledesma : + + Interpretation Summary 1) Normal left ventricular thickness, size, wall motion, and systolic function (EF 60-65%). 2) Grossly, normal right ventricular size with normal function. 3) Slight aortic valve calcification but no valvular stenosis or regurgitation present. 4) Compared to the Echo done 09/03/2018, no significant change. Procedure: A two-dimensional transthoracic echocardiogram with color flow and Doppler was performed. The study quality was technically adequate. Comparison is made with the echocardiogram of 09-03-18. The patient was in normal sinus rhythm during the exam. Left Ventricle: The left ventricle is normal in size, wall thickness, and systolic function without any focal wall motion abnormalities. The ejection fraction is estimated to be 60-65%. Right Ventricle: The right ventricle grossly appears normal in size with probable normal systolic function. Atria: The left atrium is mildly dilated. Right atrial size is normal. The interatrial septum is intact with no evidence for an atrial septal defect. Mitral Valve: The mitral valve is normal in structure and function. There is trace mitral regurgitation. Aortic Valve: The aortic valve is trileaflet. The aortic valve opens well. The aortic valve is slightly calcified. No aortic regurgitation is present. Tricuspid Valve: The tricuspid valve leaflets are thin and pliable. There is mild tricuspid regurgitation. The right ventricular systolic pressure is estimated to be at least 35 mmHg based on an estimated right atrial pressure of 3 mm Hg. Pulmonic Valve: The pulmonic valve is not well seen, but is grossly normal. There is no pulmonic valvular regurgitation. Great Vessels: The aortic root is normal size. The ascending aorta is at the upper limits of normal in size. The aortic arch is normal in size. The IVC is of normal diameter and collapses greater than 50% with a sniff. This suggests a low right atrial pressure of 3 mm Hg. Pericardium/ Pleura There is no pericardial effusion. There is no pleural effusion. MMode/2D Measurements & Calculations LVIDd: 5.0 cm Ao root diam: 3.1 cm LVIDs: 2.8 cm Aortic Jxn: 2.3 cm FS: 44.5 % asc Aorta Diam: 3.5 cm EPSS: 0.80 cm Ao Arch Diam (Prox Trans): 2.4 cm IVSd: 0.89 cm LVPWd: 0.85 cm LV yousif. diameter/BSA (cm/m^2): 2.7 LV sys. diameter/BSA (cm/m^2): 1.5 LA dimension: 3.6 cm RA long axis: 5.1 cm LA A2 area: 22.8 cm2 RA area: 17.7 cm2 LA A4 area: 22.2 cm2 RA vol: 52.4 ml LA length (vol): 5.5 cm RA : 28.0 ml/m2 LA vol: 77.8 ml IVC diam: 1.6 cm LA vol index: 41.6 ml/m2 RVDd major: 5.0 cm RVD1 (basal): 3.1 cm RVD2 (mid): 2.6 cm Doppler Measurements & Calculations Ao V2 max: 171.3 cm/sec MV E max mannie: 155.2 cm/sec Ao V2 mean: 110.4 cm/sec MV A max mannie: 116.5 cm/sec Ao max P.7 mmHg MV E/A: 1.3 Ao mean P.8 mmHg Med Peak E' Mannie: 8.4 cm/sec Ao V2 VTI: 39.8 cm E/E' med: 18.4 Lat Peak E' Mannie: 8.4 cm/sec E/E' lat: 18.4 E/e' average: 18.4 MV dec time: 0.23 sec MV P1/2t: 69.7 msec TR max mannie: 283.1 cm/sec MV P1/2t max mannie: 154.4 cm/sec TR max P.1 mmHg MVA(P1/2t): 3.2 cm2 PA V2 max: 93.0 cm/sec PA V2 mean: 63.3 cm/sec PA mean P.8 mmHg PA Accel Time: 0.19 sec Reading Physician:02:18 PM
== END ==
PROVIDERS: Family Provider Internal Medicine; PCP Internal Medicine; Visit Provider Internal Medicine Cardiovascular Disease
DX: I65.23 Occlusion and stenosis of bilateral carotid arteries (principal); I07.1 Rheumatic tricuspid insufficiency; R01.1 Cardiac murmur, unspecified
CPT/HCPCS: 93306; 93880

== ENCOUNTER → 2019-08-11 09:38 | Outpatient (CLI) | payer MEDICARE, BC, SELFPAY ==
--- NOTE | 2019-08-11 10:18 | DI.CT.S_ITS ---
PROCEDURE: CT CHEST ABD PEL WO CON INDICATIONS: f/u lung/bladder cancer TECHNIQUE: After the administration of oral contrast, 5 mm thick sections acquired from the lung apices to the symphysis pubis. 5 mm thick coronal and sagittal reformats acquired, with additional 7 mm coronal MIP reformats through the lungs. For radiation dose reduction, the following was used: automated exposure control, adjustment of mA and/or kV according to patient size. COMPARISON: [facility], CT, CT KIDNEY URETER BLADDER (KUB), 05/20/2018, 10:42. [facility], [place], PET/CT WHOLE BODY EXTENDED, 08/18/2017, 10:11. [facility], CT, THORAX WITHOUT CONTRAST, 07/22/2017, 14:07. [facility], CT, KIDNEY/ URETER/BLADDER, 07/14/2017, 9:49. FINDINGS: Image quality: Excellent. CHEST: Lungs and pleura: Previously described discrete nodules in the right lung base on 05/20/18 is no longer definitively identifiable. There is interval development of upper and lower lobe patchy ill-defined areas of consolidation, some of which demonstrate bronchovascular distribution and potential linear configuration in the right lung base image 27 series 3 raising the possibility of post therapeutic change. Some of these areas demonstrate ill-defined nodularity and cannot exclude small viable nodule, although recommend continued surveillance. Diffuse scarring or atelectasis. No acute consolidation Mediastinum: Heart size is normal. No pericardial effusion. No mediastinal adenopathy by CT size criteria. Calcified mediastinal lymph nodes incidentally noted Thoracic aorta and central pulmonary arteries are normal in size. Esophagus is normal in caliber. No hiatal hernia. Chest wall: No axillary or supraclavicular adenopathy by size criteria. Thyroid gland grossly unremarkable. ABDOMEN: Solid organs: Liver is normal in size. Gallbladder negative. Pancreas is normal in contours. Spleen is normal in size. No adrenal nodules. Right kidney absent. Unenhanced left kidney demonstrates cortical scarring and stable-appearing cysts with peripheral rim calcification image 75 series 2. No hydronephrosis. Peritoneum and bowel: Small and large bowel loops are normal in caliber and wall thickness. No free fluid or air. Incidental colonic diverticulosis. Rectum is unremarkable. Nodes and vessels: No retroperitoneal or mesenteric adenopathy by size criteria. Aorta and inferior vena cava are normal in size. Atheromatous calcifications throughout the aorta Miscellaneous: No ventral hernias. PELVIS: Genitourinary: Bladder is decompressed Miscellaneous: No inguinal hernias or adenopathy. Bones: No suspicious bony lesions. No vertebral body compression fractures. Diffuse osteopenia. Jung and screw fixation of the proximal left femur. T11 mild compression fracture which appears grossly unchanged IMPRESSION: Presumed post radiation therapy changes seen in the right lung, although numerous scattered ill-defined nodular foci present, possibly scarring although cannot exclude small viable residual nodule at this time and recommend continued surveillance to document stability or improvement. Elsewhere, no evidence of active metastatic disease. Dictated by: Hayden Gonzalez M.D. on 08/11/2019 at 10:33 Approved by: Hayden Gonzalez M.D. on 08/11/2019 at 10:45
== END ==
PROVIDERS: Family Provider Internal Medicine; PCP Internal Medicine
DX: C34.90 Malignant neoplasm of unspecified part of unspecified bronchus or lung (principal); Z85.53 Personal history of malignant neoplasm of renal pelvis
CPT/HCPCS: 71250; 74176

== ENCOUNTER → 2019-10-09 15:30 | Outpatient (ROUT) | payer MEDICARE, BC, SELFPAY ==
[2019-10-09 15:59] LABS: INR 2.8 (0.9-1.3); Prothrombin Time 33.3 SECONDS (10.1-12.7)
== END ==
PROVIDERS: Family Provider Internal Medicine; PCP Internal Medicine; Visit Provider Family Medicine
DX: I48.91 Unspecified atrial fibrillation (principal)
CPT/HCPCS: 85610

== ENCOUNTER → 2019-10-27 12:23 | Outpatient (CLI) | payer MEDICARE, BC, SELFPAY ==
--- NOTE | 2019-10-27 | DI.RAD.S_ITS ---
PROCEDURE: XR CHEST 2V INDICATIONS: sob TECHNIQUE: 2 views of the chest were acquired. COMPARISON: [facility], CR, XR CHEST 2V, 08/02/2018, 14:02. FINDINGS: Surgical changes and devices: Right shoulder arthroplasty. Right chest port with tip projecting at the cavoatrial junction. Lungs and pleura: Dense consolidation seen within the right mid lung and right lung base. Scattered atelectasis noted bilaterally. Possible trace right pleural effusion. No pneumothorax. Mild scattered increased bilateral perihilar groundglass opacities Mediastinum: Cardiac silhouette and mediastinal contours are stable. Bones and chest wall: No suspicious bony abnormalities. Lateral curvature of the spine and discogenic changes. Soft tissues appear unremarkable. Unchanged lower thoracic compression fracture. IMPRESSION: Right mid lung and right lung base dense consolidation, presumably pneumonia and/or aspiration. Recommend radiographic followup to document resolution after treatment Scattered bilateral mild perihilar groundglass opacities raising possibility of superimposed pulmonary edema. Dictated by: Hayden Gonzalez M.D. on 10/27/2019 at 13:48 Approved by: Hayden Gonzalez M.D. on 10/27/2019 at 13:51
== END ==
PROVIDERS: PCP Internal Medicine; Visit Provider Student in an Organized Health Care Education/Training Program
DX: R06.02 Shortness of breath (principal)
CPT/HCPCS: 71046

== ENCOUNTER → 2020-06-26 10:37 | Outpatient (ROUT) | payer MEDICARE, BC, SELFPAY ==
[2020-06-26 10:53] LABS: INR 2.3 (0.9-1.3); Prothrombin Time 26.7 SECONDS (10.1-12.7)
== END ==
PROVIDERS: PCP Internal Medicine; Visit Provider Internal Medicine
DX: I48.91 Unspecified atrial fibrillation (principal); Z79.01 Long term (current) use of anticoagulants
CPT/HCPCS: 85610

== ENCOUNTER → 2020-07-30 11:43 | Outpatient (CLI) | payer MEDICARE, BC, SELFPAY ==
--- NOTE | 2020-07-30 11:45 | DI.CT.S_ITS ---
PROCEDURE: CT CHEST WO CON INDICATIONS: Adenocarcinoma of the lung TECHNIQUE: Noncontrast 5 mm thick sections acquired from the pulmonary apices to the posterior costophrenic angles. 1 mm lung window, 5 mm thick coronal and sagittal and 7 mm axial MIP reformats were then acquired. For radiation dose reduction, the following was used: automated exposure control, adjustment of mA and/or kV according to patient size. COMPARISON: [facility], , CT THORAX W/O CONTRAST, 05/21/2020, 9:35. FINDINGS: Image quality: Excellent. Lungs and pleura: Subtle reticulonodular pattern is present anteriorly in the right upper. Small subpleural spiculated nodular density present laterally in the right upper lobe at a mid lung level is unchanged. Consolidative change in the right infrahilar region resulting in airway irregularity is again noted. There is ground-glass opacity in the superior segment right lower lobe in a peribronchovascular distribution. The right pleural effusion has decreased slightly in size. There is more aeration of the right lower lobe than seen previously. Small calcified solid nodule present at the left lung base. 7 mm spiculated nodule centrally in the left lower lobe is stable (3/183). There are several scattered subpleural ground-glass nodules in the left lung which all measure under 5 mm and are stable. There is a ground-glass opacity layering along the left major fissure within the left upper lobe. No acute air space opacities. No new suspicious nodules or masses. Mediastinum: Heart size is normal. MediPort catheter is present in the right atrium. No pericardial effusion. No mediastinal adenopathy by size criteria. Thoracic aorta and central pulmonary arteries are normal in size. Moderate to heavy aortic arch calcification. Mild coronary artery calcification. Esophagus is normal in caliber. No hiatal hernia. Bones and chest wall: No suspicious bony lesions. Chronic appearing compression fracture of T11. Surgical changes of right shoulder arthroplasty.. No axillary or supraclavicular adenopathy by size criteria. Thyroid gland is unremarkable . Abdomen: Visualized upper abdominal solid organs and bowel loops appear normal in the absence of contrast. IMPRESSION: 1. Probable slight improvement in right perihilar soft tissue mass given increased aeration of the right lower lobe. 2. Slight decrease in size of right pleural effusion. 3. There is a stable spiculated 7 mm nodular density in the central left lower lobe. Continued attention to this region is suggested. 4. Stable reticular nodular pattern seen elsewhere in both lungs may indicate underlying respiratory bronchiolitis. Dictated by: Mabel Weiss M.D. on 07/31/2020 at 8:46 Approved by: Mabel Weiss M.D. on 07/31/2020 at 8:57
== END ==
PROVIDERS: PCP Internal Medicine; Referring Provider Internal Medicine; Visit Provider Internal Medicine
DX: C34.31 Malignant neoplasm of lower lobe, right bronchus or lung (principal); J90 Pleural effusion, not elsewhere classified; R91.1 Solitary pulmonary nodule
CPT/HCPCS: 71250

== ENCOUNTER → 2020-09-04 12:15 | Outpatient (ROUT) | payer MEDICARE, BC, SELFPAY ==
[2020-09-04 12:23] LABS: INR 1.8 (0.9-1.3); Prothrombin Time 20.5 SECONDS (10.1-12.7)
== END ==
PROVIDERS: PCP Internal Medicine; Visit Provider Family Medicine
DX: Z79.01 Long term (current) use of anticoagulants (principal)
CPT/HCPCS: 85610

== ENCOUNTER 2020-09-11 21:23 | Emergency (ER) | payer MEDICARE, BC, SELFPAY ==
[2020-09-11 21:30] VITALS: BP 124/60; PULSE 71; RESP 16; TEMP 37.3; O2SAT 98; BMI 26.4
[2020-09-11] MEDS: ONDANSETRON 4 MG/2 ML INJ IV (21:46)
[2020-09-11 21:50] VITALS: PULSE 70; RESP 29; O2SAT 96
--- NOTE | 2020-09-11 21:59 | PC.NURSE ---
Pt was at dialysis earlier today around 1600. Pt felt fine at that time. Pt ate dinner around 1900 and shortly after had a witnessed syncopal episode that lasted 20 seconds and her son states she was back to normal within one minute. Pt reports feeling normal and back to base line. A&ox4, VS stable.
[2020-09-11 22:00] VITALS: BP 117/58; PULSE 71; RESP 16; O2SAT 96
[2020-09-11 22:05] LABS: Add Manual Diff / Slide Review NO; Basophils Absolute Auto 100 /uL (0-100); Basophils Percent Auto 1.2 % (0-2); Eosinophils Absolute Auto 200 /uL (0-450); Eosinophils Percent Auto 2.4 % (2-4); Hematocrit 29.8 % (36-46); Hemoglobin 10.1 g/dL (12.0-16.0); Lymphocytes Absolute Auto 400 /uL (1100-4500); Lymphocytes Percent Auto 6.2 % (25-40); Mean Corpuscular HGB Conc 33.9 % (30-36); Mean Corpuscular Hemoglobin 36.7 PG (26-34); Mean Corpuscular Volume 108.5 fL (80-100); Monocytes Absolute Auto 700 /uL (0-900); Monocytes Percent Auto 9.7 % (3-14); Neutrophils Absolute Auto 5900 /uL (1500-7000); Neutrophils Percent Auto 80.5 % (50-75); Platelet Count 164 X10^3/uL (150-400); Red Blood Cell Count 2.75 X10^6/uL (4.0-5.2); Red Cell Distribution Width 13.9 % (11.6-14.8); White Blood Cell Count 7.3 X10^3/uL (4.5-11.0)
[2020-09-11 22:08] LABS: Alanine Aminotransferase 18 IU/L (<35); Albumin 3.7 g/dL (3.5-5.0); Albumin Globulin Ratio 1.3 (1.0-2.8); Alkaline Phosphatase 103 U/L (38-126); Aspartate Aminotransferase 16 IU/L (14-36); Bilirubin Total 0.5 mg/dL (0.2-1.3); Blood Urea Nitrogen 21 mg/dL (7-17); Calcium 8.5 mg/dL (8.4-10.2); Carbon Dioxide 26 mmol/L (22-32); Chloride 93 mmol/L (98-107); Creatine Kinase 84 U/L (30-135); Estimated Glomerular Filt Rate 10.1 mL/min (>60); Globulin 2.9 g/dL (1.7-4.1); Glucose 108 mg/dL (80-110); HEMOLYSIS < 15 (0-50); Potassium 3.1 mmol/L (3.4-5.1); Sodium 130 mmol/L (137-145); Total Protein 6.6 g/dL (6.3-8.2)
[2020-09-11 22:18] LABS: Troponin I < 0.012 ng/mL (0.01-0.034)
[2020-09-11 22:30] VITALS: BP 111/56; PULSE 70; RESP 16; O2SAT 93
[2020-09-11] MEDS: SODIUM CHLORIDE 0.9% 1,000 ML 150 ML IV (22:55)
[2020-09-11 23:00] VITALS: PULSE 72; RESP 20; O2SAT 97
[2020-09-11 23:01] VITALS: BP 135/62; PULSE 72; RESP 22; O2SAT 97
[2020-09-11] MEDS: POTASSIUM CHLORIDE 20 MEQ/15 ML UDC 40 MEQ PO (23:03)
--- NOTE | 2020-09-11 23:06 | ED_ITS ---
HPI - Syncope General Chief Complaint: Syncope Stated Complaint: dialysis onset n/v, syncopal Time Seen by Provider: 09/11/20 22:56 Source: EMS Mode of arrival: EMS History of Present Illness HPI narrative: The patient undergoes dialysis Wednesday, Wednesday and Wednesday due to chronic renal failure. She underwent dialysis this afternoon, she then went home. Once home she developed weakness and sat down. Her son told her she briefly passed out. She does not remember the entire event. Arrival she has no headache, no dizziness or weakness. She has no chest pain or palpitations. She has no difficulty breathing. She has abdominal pain, or back pain. She has no muscle aches, or weakness. She does do fever, no recent illness. She has a prior history of syncope. Related Data Home Medications Medication Instructions Recorded Confirmed Disabled Parking Permit 1 ea MISCELLANEOUS DIRECTED 06/28/18 06/19/20 Walker: Heavy Duty Front Wheeled 1 units MISCELLANEOUS DIRECTED 06/28/18 06/19/20 calcitriol 1 cap PO DIRECTED 06/28/18 06/19/20 cholecalciferol (vitamin D3) 2,000 unit PO DAILY 06/28/18 06/19/20 [Vitamin D3] metoprolol tartrate 100 mg PO BID 06/27/19 06/19/20 multivitamin 1 cap PO QAM 06/27/19 06/19/20 warfarin 2.5 mg PO 5XW 07/06/19 06/19/20 warfarin 5 mg PO 2XW 07/06/19 06/19/20 levothyroxine 50 mcg PO QAM 08/09/19 06/19/20 amiodarone 100 mg PO DAILY 09/06/19 06/19/20 Allergies Allergy/AdvReac Type Severity Reaction Status Date / Time ciprofloxacin [From Cipro] Allergy Severe severe Verified 10/11/18 15:48 itching erythromycin base Allergy Mild nausea Verified 10/11/18 15:48 [ERYTHROMYCIN BASE] Review of Systems Constitutional Constitutional: Denies chills, Denies fever(s) and Denies weakness Comments: No recent illness Eyes Eyes: Denies loss of vision ENT Ears, Nose, Mouth, and Throat: Denies change in voice Cardiovascular Cardiovascular: Denies chest pain, Denies irregular heart rhythm, Denies lightheadedness, Denies palpitations and Denies dyspnea Respiratory Respiratory: Denies cough, Denies dyspnea and Denies wheezing Gastrointestinal Gastrointestinal: Denies abdominal pain, Denies change in bowel habits, Denies diarrhea, Denies nausea and Denies vomiting Genitourinary Genitourinary: Denies dysuria Genitourinary: Denies dysuria Musculoskeletal Musculoskeletal: Denies arthralgias, Denies back pain and Reports numbness Comments: No weakness Integumentary/Breasts Skin/Breast: Denies rash and Denies wounds Neurologic Neurologic: Denies confusion, Denies loss of vision, Reports numbness and Denies weakness Psychiatric Psychiatric: Denies confusion and Denies depression Endocrine Endocrine: Denies palpitations Allergic/Immunologic Allergic/Immunologic: Denies wheezing Patient History Medical History Acne (Resolved) Cataract (Chronic ~1994) Foot pain (Chronic ~2008) Hemorrhoid (Chronic) Hepatitis (Chronic) History of nephrectomy, unilateral (Acute) Hypertension (Chronic ~1988) Kidney failure (Acute) Lung nodule (Acute) Measles (Resolved ~1961) Mumps (Resolved ~1959) Osteopenia (Chronic) Restless leg syndrome (Chronic ~2008) Seasonal allergies (Chronic) Skin cancer (Chronic) Tinnitus (Chronic ~1955) Transitional cell carcinoma of kidney (Acute) Surgical History Anesthesia (Resolved) History of tonsillectomy (~1943) Status post tubal ligation (~1974) Family History Brother Age: 77 Diabetes mellitus Heart disease Brother Age: 71 Diabetes mellitus Heart disease Hypertension Stroke Father Skin cancer Hypertension Heart disease Cancer Stroke Mother Skin cancer Diabetes mellitus Hypertension Osteoporosis Gallstones Cancer Stroke Social History marital status: household members: spouse Smoking Status: Former smoker alcohol intake: current Smoking Status: Former smoker alcohol intake frequency: 0-2 drinks per day Substance Use Type: does not use Exam Initial Vital Signs Initial Vital Signs: Vital Signs Temperature 99.2 F 09/11/20 21:30 Pulse Rate 71 09/11/20 21:30 Respiratory Rate 16 09/11/20 21:30 Blood Pressure 124/60 09/11/20 21:30 Pulse Oximetry 98 09/11/20 21:30 Const General: cooperative and well developed Nutritional Appearance: well nourished [facility] Head: normocephalic and atraumatic Face and sinus: No dry mucous membranes Mouth: oral mucosae normal and moist mucous membranes Throat: posterior oropharynx normal Neck Neck: normal visual inspection, trachea midline, No lymphadenopathy, No midline deformity and No JVD Lymphatic: No lymphedema Resp Effort & Inspection: normal respiratory effort and able to speak in complete sentences Auscultation: clear to auscultation bilaterally, no rales, no rhonchi and no wheezes Cardio Rate: regular rate Rhythm: regular rhythm Heart Sounds: no click, no gallops, no murmurs and no rubs Pulses: normal peripheral pulses GI Inspection: non-distended Palpation: soft, no hepatosplenomegaly, No guarding, No pulsatile mass and No tender Auscultation: normal bowel sounds Back/Spine/Pelvis Back: No CVA tenderness Skin General: no rashes or lesions noted, No jaundice and No petechiae Neuro General: patient alert, patient oriented x3, gait normal and no focal motor deficits Speech: speech normal Extrem General: full ROM, no clubbing, cyanosis or edema, no pedal edema and no calf tenderness Psych Mental Status: mental status grossly normal Course Course Course Narrative: The patient has been clinically stable since arrival. Her EKG is normal. Her labs are appropriate other than hypokalemia at 3.1, and the known renal failure. Potassium 40 mEq has been given orally. She was discharged, she is asked to follow-up with her doctor tomorrow regarding the hypo kalemia. She will undergo dialysis again in 2 days. Orders Ordered: Discontinued Medications Heparin Sodium (Porcine) (Heparin Flush (Port)) 500 unit IV PRN PRN PRN Reason: Flush Last Admin: 09/11/20 23:34 Dose: 500 unit Documented by: AZRA Sodium Chloride (Normal Saline 0.9%) 1,000 mls @ 150 mls/hr IV CONT STEFFEN Last Infusion: 09/11/20 23:32 Dose: 0 mls/hr Documented by: Admin: 09/11/20 22:55 Dose: 150 mls/hr Documented by: SAPPHIRE Ondansetron HCl (Zofran) 4 mg IV NOW ONE Stop: 09/11/20 21:38 Last Admin: 09/11/20 21:46 Dose: 4 mg Documented by: AZRA Potassium Chloride (Potassium Chloride) 40 meq PO NOW ONE Stop: 09/11/20 22:57 Last Admin: 09/11/20 23:03 Dose: 40 meq Documented by: SAPPHIRE Vital Signs Vital signs: Vital Signs - 8 hr 09/11/20 21:30 09/11/20 21:50 09/11/20 22:00 Temperature 99.2 F Pulse Rate 71 70 71 Respiratory Rate 16 29 H 16 Blood Pressure 124/60 117/58 L Pulse Oximetry 98 96 96 09/11/20 22:30 Temperature Pulse Rate 70 Respiratory Rate 16 Blood Pressure 111/56 L Pulse Oximetry 93 MDM - Syncope Lab Data Result diagrams: 09/11/20 21:45 09/11/20 21:45 Labs: Lab Results 09/11/20 09/11/20 Range/Units 21:45 21:45 WBC 7.3 (4.5-11.0) X10^3/uL RBC 2.75 L (4.0-5.2) X10^6/uL Hgb 10.1 L (12.0-16.0) g/dL Hct 29.8 L (36-46) % MCV 108.5 H (80-100) fL MCH 36.7 H (26-34) PG MCHC 33.9 (30-36) % RDW 13.9 (11.6-14.8) % Plt Count 164 (150-400) X10^3/uL Neut % (Auto) 80.5 H (50-75) % Lymph % (Auto) 6.2 L (25-40) % Davidson % (Auto) 9.7 (3-14) % Eos % (Auto) 2.4 (2-4) % Baso % (Auto) 1.2 (0-2) % Neut # (Auto) 5900 (4149-4360) /uL Lymph # (Auto) 400 L (9822-5410) /uL Davidson # (Auto) 700 (0-900) /uL Eos # (Auto) 200 (0-450) /uL Baso # (Auto) 100 (0-100) /uL Sodium 130 L (137-145) mmol/L Potassium 3.1 L (3.4-5.1) mmol/L Chloride 93 L (98-107) mmol/L Carbon Dioxide 26 (22-32) mmol/L BUN 21 H (7-17) mg/dL Creatinine 4.22 H (0.52-1.04) mg/dL Estimated GFR 10.1 L (>60) mL/min BUN/Creatinine Ratio 5.0 L (6-22) Glucose 108 (80-110) mg/dL Calcium 8.5 (8.4-10.2) mg/dL Total Bilirubin 0.5 (0.2-1.3) mg/dL AST 16 (14-36) IU/L ALT 18 (<35) IU/L Alkaline Phosphatase 103 (38-126) U/L Total Creatine Kinase 84 (30-135) U/L CK-MB (CK-2) TNP CK-MB (CK-2) Rel Index TNP Troponin I < 0.012 (0.01-0.034) ng/mL Total Protein 6.6 (6.3-8.2) g/dL Albumin 3.7 (3.5-5.0) g/dL Globulin 2.9 (1.7-4.1) g/dL Albumin/Globulin Ratio 1.3 (1.0-2.8) ECG Data Attestation: I personally reviewed and interpreted this ECG as follows: (Normal sinus rhythm rate 73 bpm. Normal intervals. No ectopy. No acute ST T wave changes. Normal study.) Discharge Plan Departure Patient Disposition: Home Clinical Impression: Acute hypokalemia Anemia, chronic renal failure Qualifiers: Chronic kidney disease stage: unspecified stage Qualified Code(s): N18.9 - Chronic kidney disease, unspecified Syncope Qualifiers: Syncope type: unspecified Qualified Code(s): R55 - Syncope and collapse Discharge Date/Time: 09/11/20 23:47 Instructions: DI for Hypokalemia Activity Restrictions/Additional Instructions: Continue current medications. Contact her doctor tomorrow, your potassium level was 3.1. Her doctor should monitor this. Return to the ER as needed. Prescriptions: No Action calcitriol 0.25 mcg capsule 1 cap PO DIRECTED RF: 0 Disabled Parking Permit 1 ea miscellaneous DIRECTED RF: 0 Walker: Heavy Duty Front Wheeled 1 units miscellaneous DIRECTED RF: 0 cholecalciferol (vitamin D3) [Vitamin D3] 1,000 unit Capsule 2,000 unit PO DAILY RF: 0 metoprolol tartrate 25 mg tablet 100 mg PO BID RF: 0 multivitamin Capsule 1 cap PO QAM RF: 0 levothyroxine 25 MCG tablet 50 mcg PO QAM RF: 0 amiodarone 200 mg tablet 100 mg PO DAILY RF: 0 warfarin 5 mg tablet 5 mg PO 2XW RF: 0 warfarin 5 mg tablet 2.5 mg PO 5XW RF: 0 Referrals: Bhavani Ledesma ARNP [Primary Care Provider] -
== END 2020-09-11 23:47 | disposition home or self-care (01) ==
PROVIDERS: Emergency Provider Emergency Medicine; PCP Internal Medicine
DX: N18.9 Chronic kidney disease, unspecified (principal); E87.6 Hypokalemia; Z99.2 Dependence on renal dialysis; R55 Syncope and collapse
CPT/HCPCS: 36415; 80053; 82550; 84484; 85025; 93005; 96361; 96374; 99284; J1642; J2405

== ENCOUNTER → 2020-10-25 15:48 | Outpatient (ROUT) | payer MEDICARE, BC, SELFPAY ==
[2020-10-25 15:59] LABS: INR 2.3 (0.9-1.3); Prothrombin Time 25.8 SECONDS (10.1-12.7)
== END ==
PROVIDERS: PCP Internal Medicine; Visit Provider Internal Medicine
DX: Z79.01 Long term (current) use of anticoagulants (principal)
CPT/HCPCS: 85610

== ENCOUNTER 2020-11-05 09:11 | Emergency (ER) | payer MEDICARE, BC, SELFPAY ==
[2020-11-05] VITALS (31 sets, daily range): BP systolic 174–218; BP diastolic 73–93; PULSE 70–88; RESP 15–24; TEMP 36.7; O2SAT 92–99; BMI 25.0
--- NOTE | 2020-11-05 09:23 | DI.RAD.S_ITS ---
PROCEDURE: XR CHEST 2V INDICATIONS: shortness of breath TECHNIQUE: 2 views of the chest were acquired. COMPARISON: [facility], CT, CT CHEST WO CON, 07/30/2020, 11:52. [facility], CR, XR CHEST 2V, 10/27/2019, 12:24. [facility], CR, XR CHEST 2V, 08/02/2018, 14:02. FINDINGS: Surgical changes and devices: Port-A-Cath from right-sided approach extends into the distal SVC and potentially into the superior margin of the right atrium.. Lungs and pleura: Lungs are abnormal with asymmetric radiodensity of the right mid and lower lungs and this pattern was previously present to a slightly greater degree on a comparison study from 10/27/19. No left-sided pleural effusions or pneumothorax bilaterally, probable small right pleural effusion best seen posteriorly. Mediastinum: Mediastinal contours are normal. Heart size is normal. Bones and chest wall: No suspicious bony abnormalities. Soft tissues appear unremarkable. IMPRESSION: Persistent alveolar consolidation right lung, present on multiple prior plain films and CT studies. New small posterior right subpulmonic pleural effusion. No pneumothorax. No definite new area of pneumonia. Dictated by: Jay Howell M.D. on 11/05/2020 at 10:38 Approved by: Jay Howell M.D. on 11/05/2020 at 10:50
--- NOTE | 2020-11-05 09:36 | ED.SOB ---
HPI - SOB/Dyspnea General Chief Complaint: Shortness of Breath/Dyspnea Stated Complaint: cant breathe Time Seen by Provider: 11/05/20 09:21 Source: patient Mode of arrival: Wheelchair Limitations: no limitations History of Present Illness HPI Narrative: Patient is an 80-year-old of both lung cancer and renal cancer on dialysis presenting with increasing shortness of breath. She says yesterday she was feeling of OK not too bad but last night she started having significant trouble breathing. She denies any fever productive cough. She says it is definitely worse with exertion. She is occasionally on O2 during dialysis but not typically. She is having some chest discomfort as well. She overall just does not feel well. She says she has not had any increased orthopnea. MD Complaint: shortness of breath and cough Related Data Home Medications Medication Instructions Recorded Confirmed Disabled Parking Permit 1 ea MISCELLANEOUS DIRECTED 06/28/18 09/24/20 Walker: Heavy Duty Front Wheeled 1 units MISCELLANEOUS DIRECTED 06/28/18 09/24/20 cholecalciferol (vitamin D3) 2,000 unit PO DAILY 06/28/18 09/24/20 [Vitamin D3] metoprolol tartrate 100 mg PO BID 06/27/19 06/19/20 multivitamin 1 cap PO QAM 06/27/19 09/24/20 warfarin 2.5 mg PO 5XW 07/06/19 09/24/20 warfarin 5 mg PO 2XW 07/06/19 09/24/20 levothyroxine 50 mcg PO QAM 08/09/19 09/24/20 amiodarone 100 mg PO DAILY 09/06/19 09/24/20 sevelamer carbonate 800 mg tablet 800 mg PO TID 09/24/20 09/24/20 Allergies Allergy/AdvReac Type Severity Reaction Status Date / Time ciprofloxacin [From Cipro] Allergy Severe severe Verified 11/05/20 09:23 itching erythromycin base Allergy Mild nausea Verified 11/05/20 09:23 [ERYTHROMYCIN BASE] Review of Systems Review of Systems Narrative: GENERAL: Denies chills, fatigue, malaise, fever, sweats, travel HEENT: Denies sinus pain, ear pain, sore throat, difficulty swallowing, neck pain RESPIRATORY: see HPI CARDIOVASCULAR: Denies chest pain, palpitations, orthopnea, edema GASTROINTESTINAL: Denies nausea, vomiting, abdominal pain, diarrhea, constipation, melena. : Denies dysuria, frequency, incontinence, hematuria, urinary retention, flank pain. MUSCULOSKELETAL: Denies weakness, joint pain, or bony pain SKIN: No rash, no erythema, no pruritus NEUROLOGIC: Denies weakness, dizziness, headache, numbness, change in speech, confusion PSYCHIATRIC: No concerning psychosocial issues. 12 point review of systems is negative except for those stated above and HPI Patient History Medical History Acne Cataract (~1994) COPD (chronic obstructive pulmonary disease) Foot pain (~2008) Hemorrhoid Hepatitis History of malignant neoplasm of renal pelvis History of nephrectomy, unilateral Hypertension (~1988) Kidney failure Lung nodule Measles (~1961) Mumps (~1959) Osteopenia Restless leg syndrome (~2008) Seasonal allergies Skin cancer Tinnitus (~1955) Transitional cell carcinoma of kidney Surgical History Anesthesia History of tonsillectomy (~1943) Status post tubal ligation (~1974) Family History Brother Age: 77 Diabetes mellitus Heart disease Brother Age: 71 Diabetes mellitus Heart disease Hypertension Stroke Father Skin cancer Hypertension Heart disease Cancer Stroke Mother Skin cancer Diabetes mellitus Hypertension Osteoporosis Gallstones Cancer Stroke Social History marital status: household members: spouse Smoking Status: Former smoker alcohol intake: current Smoking Status: Former smoker alcohol intake frequency: 3 or more drinks per day Substance Use Type: does not use Exam Initial Vital Signs Initial Vital Signs: Vital Signs Temperature 98.1 F 11/05/20 09:18 Pulse Rate 78 11/05/20 09:18 Respiratory Rate 23 11/05/20 09:18 Blood Pressure 180/80 H 11/05/20 09:18 Pulse Oximetry 92 11/05/20 09:18 GENERAL: Alert female chronically ill mild distress and in no acute distress. HEENT: Head atraumatic,EOMI, pupils reactive, face symmetric, moist mucous membranes CARDIOVASCULAR: Regular rate and rhythm without murmurs, rubs or gallops. RESPIRATORY: Coarse breath sounds at bases no significant respiratory distress ABDOMEN: Soft, nontender. Normoactive bowel sounds all 4 quadrants. No guarding or rebound. EXTREMITIES: Normal range of motion, no clubbing or edema. Neurovascularly intact NEUROLOGICAL: Alert and oriented x4 no cranial nerve deficits SKIN: Warm, dry, no laceration, no petechiae, no rashes or lesions. Course Orders Ordered: ED Orders 11/05/20 10:03 Complete Blood Count AUTO DIFF Stat Comprehensive Metabolic Panel Stat Lactate (Lactic Acid) Stat Partial Thromboplastin Time Stat Prothrombin Time INR Stat 11/05/20 12:24 CT angio chest PE protocol Stat 11/05/20 13:08 US thoracentesis Stat 11/05/20 16:05 XR chest 1V Stat 11/05/20 16:17 Cell Count w Diff Body Fluid Stat Glucose Body Fluid Stat LDH Body Fluid Stat pH Body Fluid Stat 11/05/20 17:05 Body Fluid Culture Stat 11/05/20 18:47 Lactate Dehydrogenase Stat Vital Signs Vital signs: Vital Signs - 8 hr 11/05/20 11:00 11/05/20 11:01 11/05/20 11:30 Pulse Rate 70 70 72 Respiratory Rate 20 19 24 Blood Pressure 203/82 H Pulse Oximetry 98 99 98 11/05/20 11:31 11/05/20 12:00 11/05/20 12:04 Pulse Rate 70 76 76 Respiratory Rate 20 22 22 Blood Pressure 197/85 H 218/93 H 213/81 H Pulse Oximetry 98 99 98 11/05/20 12:22 11/05/20 12:30 11/05/20 12:45 Pulse Rate 74 74 88 Respiratory Rate 23 21 20 Blood Pressure 198/81 H Pulse Oximetry 97 98 94 11/05/20 13:00 11/05/20 13:01 11/05/20 13:30 Pulse Rate 77 77 79 Respiratory Rate 20 16 22 Blood Pressure 195/82 H Pulse Oximetry 93 95 98 11/05/20 13:31 11/05/20 14:00 11/05/20 14:30 Pulse Rate 79 76 80 Respiratory Rate 23 21 22 Blood Pressure 182/76 H 205/83 H Pulse Oximetry 97 95 98 11/05/20 14:31 11/05/20 15:00 11/05/20 15:30 Pulse Rate 79 75 74 Respiratory Rate 22 22 24 Blood Pressure 199/85 H 204/84 H Pulse Oximetry 97 97 96 11/05/20 15:31 11/05/20 16:17 11/05/20 16:30 Pulse Rate 79 75 Respiratory Rate 18 21 Blood Pressure 174/74 H Pulse Oximetry 94 98 11/05/20 16:35 11/05/20 17:00 11/05/20 17:07 Pulse Rate 76 76 71 Respiratory Rate 21 15 18 Blood Pressure 196/79 H 178/73 H Pulse Oximetry 99 99 99 MDM - SOB/Dyspnea Lab Data Attestation: I reviewed the patient's lab results. Result diagrams: 11/05/20 10:03 11/05/20 10:03 Labs: Lab Results 11/05/20 11/05/20 11/05/20 Range/Units 09:15 10:03 10:03 WBC 4.1 L (4.5-11.0) X10^3/uL RBC 2.76 L (4.0-5.2) X10^6/uL Hgb 10.5 L (12.0-16.0) g/dL Hct 31.3 L (36-46) % MCV 113.1 H (80-100) fL MCH 38.0 H (26-34) PG MCHC 33.6 (30-36) % RDW 16.3 H (11.6-14.8) % Plt Count 130 L (150-400) X10^3/uL Neut % (Auto) 70.8 (50-75) % Lymph % (Auto) 10.1 L (25-40) % [place] % (Auto) 14.6 H (3-14) % Eos % (Auto) 3.0 (2-4) % Baso % (Auto) 1.5 (0-2) % Neut # (Auto) 2900 (2562-2270) /uL Lymph # (Auto) 400 L (7677-3082) /uL [place] # (Auto) 600 (0-900) /uL Eos # (Auto) 100 (0-450) /uL Baso # (Auto) 100 (0-100) /uL RBC Morphology See below Polychromasia 1+ H Macrocytosis 1+ H PT (10.1-12.7) SECONDS INR (0.9-1.3) APTT (26.4-36.2) SECONDS Sodium 128 L (137-145) mmol/L Potassium 5.1 (3.4-5.1) mmol/L Chloride 97 L (98-107) mmol/L Carbon Dioxide 26 (22-32) mmol/L BUN 63 H (7-17) mg/dL Creatinine 10.90 H* (0.52-1.04) mg/dL Estimated GFR 3.4 L (>60) mL/min BUN/Creatinine Ratio 5.8 L (6-22) Glucose 96 (80-110) mg/dL Lactate (0.7-2.1) mmol/L Calcium 8.9 (8.4-10.2) mg/dL Total Bilirubin 0.4 (0.2-1.3) mg/dL AST 15 (14-36) IU/L ALT 20 (<35) IU/L Alkaline Phosphatase 100 (38-126) U/L Total Protein 6.2 L (6.3-8.2) g/dL Albumin 3.6 (3.5-5.0) g/dL Globulin 2.6 (1.7-4.1) g/dL Albumin/Globulin Ratio 1.4 (1.0-2.8) Fluid Color Fluid Appearance Fluid pH pH Fluid RBC /uL Fld Tot Nucleated Cell /uL Fluid Polynuclear WBCs % Fluid Mononuclear WBCs % Fluid Eosinophils % Fluid Other Cells % Body Fluid Clot Fluid Glucose mg/dL Fluid LDH U/L COVID-19 PCR Negative (Negative) 11/05/20 11/05/20 11/05/20 Range/Units 10:03 10:03 16:17 WBC (4.5-11.0) X10^3/uL RBC (4.0-5.2) X10^6/uL Hgb (12.0-16.0) g/dL Hct (36-46) % MCV (80-100) fL MCH (26-34) PG MCHC (30-36) % RDW (11.6-14.8) % Plt Count (150-400) X10^3/uL Neut % (Auto) (50-75) % Lymph % (Auto) (25-40) % [place] % (Auto) (3-14) % Eos % (Auto) (2-4) % Baso % (Auto) (0-2) % Neut # (Auto) (5102-8091) /uL Lymph # (Auto) (8057-8850) /uL [place] # (Auto) (0-900) /uL Eos # (Auto) (0-450) /uL Baso # (Auto) (0-100) /uL RBC Morphology Polychromasia Macrocytosis PT 14.4 H (10.1-12.7) SECONDS INR 1.3 (0.9-1.3) APTT 32 (26.4-36.2) SECONDS Sodium (137-145) mmol/L Potassium (3.4-5.1) mmol/L Chloride (98-107) mmol/L Carbon Dioxide (22-32) mmol/L BUN (7-17) mg/dL Creatinine (0.52-1.04) mg/dL Estimated GFR (>60) mL/min BUN/Creatinine Ratio (6-22) Glucose (80-110) mg/dL Lactate 0.6 L (0.7-2.1) mmol/L Calcium (8.4-10.2) mg/dL Total Bilirubin (0.2-1.3) mg/dL AST (14-36) IU/L ALT (<35) IU/L Alkaline Phosphatase (38-126) U/L Total Protein (6.3-8.2) g/dL Albumin (3.5-5.0) g/dL Globulin (1.7-4.1) g/dL Albumin/Globulin Ratio (1.0-2.8) Fluid Color Yellow Fluid Appearance Clear Fluid pH 8 pH Fluid RBC 230 /uL Fld Tot Nucleated Cell 220 /uL Fluid Polynuclear WBCs 10 % Fluid Mononuclear WBCs 70 % Fluid Eosinophils 0 % Fluid Other Cells 20 % Body Fluid Clot No clots present Fluid Glucose 88 mg/dL Fluid LDH 128 U/L COVID-19 PCR (Negative) Imaging Data Chest x-ray: Radiologist's Impression: PROCEDURE: XR CHEST 2V INDICATIONS: shortness of breath TECHNIQUE: 2 views of the chest were acquired. COMPARISON: Merged With [facility], CT, CT CHEST WO CON, 07/30/2020, 11:52. Merged With [facility], CR, XR CHEST 2V, 10/27/2019, 12:24. Merged With [facility], CR, XR CHEST 2V, 08/02/2018, 14:02. FINDINGS: Surgical changes and devices: Port-A-Cath from right-sided approach extends into the distal SVC and potentially into the superior margin of the right atrium.. Lungs and pleura: Lungs are abnormal with asymmetric radiodensity of the right mid and lower lungs and this pattern was previously present to a slightly greater degree on a comparison study from 10/27/19. No left-sided pleural effusions or pneumothorax bilaterally, probable small right pleural effusion best seen posteriorly. Mediastinum: Mediastinal contours are normal. Heart size is normal. Bones and chest wall: No suspicious bony abnormalities. Soft tissues appear unremarkable. IMPRESSION: Persistent alveolar consolidation right lung, present on multiple prior plain films and CT studies. New small posterior right subpulmonic pleural effusion. No pneumothorax. No definite new area of pneumonia. Dictated by: Jay Howell M.D. on 11/05/2020 at 10:38 CT scan - chest: Radiologist's Impression: PROCEDURE: CT ANGIO CHEST PE PROTOCOL INDICATIONS: hypoxia TECHNIQUE: After the administration of intravenous contrast, 2 mm thick sections acquired from the pulmonary apices to the posterior costophrenic angles. 3-dimensional maximum intensity projection (MIP) coronal and sagittal reformats were then acquired through the thorax. For radiation dose reduction, the following was used: automated exposure control, adjustment of mA and/or kV according to patient size. COMPARISON: Merged With [facility], CT, CT CHEST WO CON, 07/30/2020, 11:52. Merged With [facility], CR, XR CHEST 2V, 11/05/2020, 9:23. Outside Facility, RG, CT THORAX W/O CONTRAST, 05/21/2020, 9:35. FINDINGS: Image quality: Excellent. Pulmonary arteries: Pulmonary arteries are normal in size, and demonstrate no intraluminal filling defects to suggest central pulmonary embolism. Lungs and pleura: Lungs are again seen to be abnormal, with a pattern of perihilar right lung fibrotic change, potentially a manifestation of prior mass and radiation therapy in that area. No left-sided significant pleural effusions or pneumothorax bilaterally, but again noted is a moderate subpulmonic right effusion as has been previously documented. This effusion appears to have mildly increased on the most recent study.. Central and peripheral airways are patent. Mediastinum: Heart size is normal, without pericardial effusion. No mediastinal or hilar adenopathy. Thoracic aorta is normal in caliber and enhancement. Esophagus is normal in caliber, without hiatal hernia. Bones and chest wall: No suspicious bony lesions. Ribs and thoracic spine appear intact throughout. Thyroid gland appears normal where well seen. . No axillary or supraclavicular adenopathy. Abdomen: Visualized upper abdominal solid organs appear normal in the early arterial phase of enhancement. IMPRESSION: Moderate right subpulmonic pleural effusion has mildly increased. Persistent fibrotic change in the perihilar right lung parenchyma is again noted in addition to atelectasis, in a pattern that may reflect sequela of radiation therapy to a perihilar lung mass. No new mass lesion is found. Minimal posterior left pleural effusion incidentally noted. No pulmonary embolus seen. Dictated by: Jay Howell M.D. on 11/05/2020 at 12:44 Approved by: Jay Howell M.D. on 11/05/2020 at 12:48 US thoracentesis: Radiologist's Impression: PROCEDURE: US THORACENTESIS INDICATIONS: RIGHT PLEURAL EFFUSION INR 1.3 TECHNIQUE: The indications, alternatives, benefits, risks, and complications of the procedure were explained to the patient. Written informed consent was obtained and placed in the chart. The chest was examined sonographically, and an appropriate site was chosen for thoracentesis. The skin was prepared and draped in the usual sterile fashion, and 1% lidocaine was infiltrated from the skin down through the pleural surface. A 19-gauge catheter-covered needle was then introduced into the pleural space, the catheter was advanced and the needle was withdrawn, and thereafter pleural fluid was aspirated. The catheter was then removed and a dressing was applied. COMPARISON: None. FINDINGS: Access site: Right hemithorax. Needle: One-Step centesis catheter with introducer needle. Fluid volume and description: 1260 cc of serous fluid Fluid sent for diagnostic testing: As requested Medications: 1% lidocaine for local anaesthesia. Complications: None; post-procedural chest radiograph is pending to assess for pneumothorax. IMPRESSION: Successful ultrasound-guided thoracentesis. Dictated by: Hayden Gonzalez M.D. on 11/05/2020 at 17:09 Approved by: Hayden Gonzalez M.D. on 11/05/2020 at 17:12 CX #2: Radiologist's Impression: PROCEDURE: US THORACENTESIS INDICATIONS: RIGHT PLEURAL EFFUSION INR 1.3 TECHNIQUE: The indications, alternatives, benefits, risks, and complications of the procedure were explained to the patient. Written informed consent was obtained and placed in the chart. The chest was examined sonographically, and an appropriate site was chosen for thoracentesis. The skin was prepared and draped in the usual sterile fashion, and 1% lidocaine was infiltrated from the skin down through the pleural surface. A 19-gauge catheter-covered needle was then introduced into the pleural space, the catheter was advanced and the needle was withdrawn, and thereafter pleural fluid was aspirated. The catheter was then removed and a dressing was applied. COMPARISON: None. FINDINGS: Access site: Right hemithorax. Needle: One-Step centesis catheter with introducer needle. Fluid volume and description: 1260 cc of serous fluid Fluid sent for diagnostic testing: As requested Medications: 1% lidocaine for local anaesthesia. Complications: None; post-procedural chest radiograph is pending to assess for pneumothorax. IMPRESSION: Successful ultrasound-guided thoracentesis. Dictated by: Hayden Gonzalez M.D. on 11/05/2020 at 17:09 Approved by: Hayden Gonzalez M.D. on 11/05/2020 at 17:12 ECG Data Attestation: I personally reviewed and interpreted this ECG as follows: Prior ECG tracings: available for review Interpretation: 74 p.r. interval 187 QRS [address] changes similar to previous EKG MDM Narrative Medical decision making narrative: Patient had ambulation trial pulse ox does decrease to 70 or 80% with exertion and quickly comes back up. Discussed case with Nephrology who agreed with CT angio. CT does confirm right-sided pleural effusion. At this time I recommend patient have a thoracentesis to remove the fluid is which will help her breathe immediately. She will miss her dialysis appointment today however we have called and arranged for her to have a makeup session tomorrow at 8:00 a.m. Patient had a successful thoracentesis she is feeling much better and O2 does show improvement. Fluid is sent for analysis. Including cytology. At this time she does not require emergent dialysis in her O2 level has improved after thoracentesis. I suspect effusion is likely secondary to cancer. [id number] spoke with Dr. Noguera nephrology who requested and agreed with the CT angio for pulmonary embolism. She has been updated on results of CT which does show a large right pleural effusion. At this time she does agree with the thoracentesis to help increase patient's breathing. She is aware that dialysis will not be feasible today if we wait for the thoracentesis. She says that patient can call and reschedule dialysis. If she has no improvement after thoracentesis she may need to be transferred for emergent dialysis. [facility] has emergent dialysis only in till 10:00 p.m. Discharge Plan Departure Patient Disposition: Home Clinical Impression: Pleural effusion Instructions: Pleural Effusion Activity Restrictions/Additional Instructions: GO TO DIALYSIS TOMORROW AT 8:00 A.M. *You have been diagnosed with pleural effusion *What to do: The fluid is being analyzed to determine the cause. Please follow-up with your cancer doctor *Continue to take medications as directed *Follow up with your primary care provider in 2-3 days *Return to ER if you should have increasing shortness of breath, chest pain, fever or any new, worsening or concerning symptoms Prescriptions: No Action Disabled Parking Permit 1 ea miscellaneous DIRECTED RF: 0 Walker: Heavy Duty Front Wheeled 1 units miscellaneous DIRECTED RF: 0 cholecalciferol (vitamin D3) [Vitamin D3] 1,000 unit Capsule 2,000 unit PO DAILY RF: 0 metoprolol tartrate 25 mg tablet 100 mg PO BID RF: 0 multivitamin Capsule 1 cap PO QAM RF: 0 levothyroxine 25 MCG tablet 50 mcg PO QAM RF: 0 amiodarone 200 mg tablet 100 mg PO DAILY RF: 0 warfarin 5 mg tablet 5 mg PO 2XW RF: 0 warfarin 5 mg tablet 2.5 mg PO 5XW RF: 0 sevelamer carbonate 800 mg tablet 800 mg PO TID RF: 0 Referrals: Bhavani Ledesma ARNP [Primary Care Provider] -
[2020-11-05 09:43] LABS: COVID19 -Nasal RAPID Negative (Negative)
[2020-11-05 10:15] LABS: Add Manual Diff / Slide Review NO; Basophils Absolute Auto 100 /uL (0-100); Basophils Percent Auto 1.5 % (0-2); Eosinophils Absolute Auto 100 /uL (0-450); Hematocrit 31.3 % (36-46); Hemoglobin 10.5 g/dL (12.0-16.0); Lymphocytes Absolute Auto 400 /uL (1100-4500); Lymphocytes Percent Auto 10.1 % (25-40); Mean Corpuscular HGB Conc 33.6 % (30-36); Mean Corpuscular Volume 113.1 fL (80-100); Monocytes Absolute Auto 600 /uL (0-900); Monocytes Percent Auto 14.6 % (3-14); Neutrophils Absolute Auto 2900 /uL (1500-7000); Neutrophils Percent Auto 70.8 % (50-75); Platelet Count 130 X10^3/uL (150-400); Red Blood Cell Count 2.76 X10^6/uL (4.0-5.2); Red Cell Distribution Width 16.3 % (11.6-14.8); White Blood Cell Count 4.1 X10^3/uL (4.5-11.0)
[2020-11-05 10:28] LABS: Alanine Aminotransferase 20 IU/L (<35); Albumin 3.6 g/dL (3.5-5.0); Albumin Globulin Ratio 1.4 (1.0-2.8); Alkaline Phosphatase 100 U/L (38-126); Aspartate Aminotransferase 15 IU/L (14-36); Bilirubin Total 0.4 mg/dL (0.2-1.3); Blood Urea Nitrogen 63 mg/dL (7-17); Calcium 8.9 mg/dL (8.4-10.2); Carbon Dioxide 26 mmol/L (22-32); Chloride 97 mmol/L (98-107); Globulin 2.6 g/dL (1.7-4.1); Glucose 96 mg/dL (80-110); HEMOLYSIS < 15 (0-50); Potassium 5.1 mmol/L (3.4-5.1); Sodium 128 mmol/L (137-145); Total Protein 6.2 g/dL (6.3-8.2)
[2020-11-05 10:29] LABS: Lactate (Lactic Acid) 0.6 mmol/L (0.7-2.1)
[2020-11-05 10:41] LABS: BUN Creatinine Ratio 5.8 (6-22); Estimated Glomerular Filt Rate 3.4 mL/min (>60)
[2020-11-05 11:19] LABS: Macrocytosis 1+; Polychromasia 1+
[2020-11-05 11:48] LABS: INR 1.3 (0.9-1.3); Prothrombin Time 14.4 SECONDS (10.1-12.7)
[2020-11-05 11:50] LABS: PTT Partial Thromboplastin Tim 32 SECONDS (26.4-36.2)
--- NOTE | 2020-11-05 12:24 | DI.CT.S_ITS ---
PROCEDURE: CT ANGIO CHEST PE PROTOCOL INDICATIONS: hypoxia TECHNIQUE: After the administration of intravenous contrast, 2 mm thick sections acquired from the pulmonary apices to the posterior costophrenic angles. 3-dimensional maximum intensity projection (MIP) coronal and sagittal reformats were then acquired through the thorax. For radiation dose reduction, the following was used: automated exposure control, adjustment of mA and/or kV according to patient size. COMPARISON: [facility], CT, CT CHEST WO CON, 07/30/2020, 11:52. [facility], CR, XR CHEST 2V, 11/05/2020, 9:23. Outside Facility, RG, CT THORAX W/O CONTRAST, 05/21/2020, 9:35. FINDINGS: Image quality: Excellent. Pulmonary arteries: Pulmonary arteries are normal in size, and demonstrate no intraluminal filling defects to suggest central pulmonary embolism. Lungs and pleura: Lungs are again seen to be abnormal, with a pattern of perihilar right lung fibrotic change, potentially a manifestation of prior mass and radiation therapy in that area. No left-sided significant pleural effusions or pneumothorax bilaterally, but again noted is a moderate subpulmonic right effusion as has been previously documented. This effusion appears to have mildly increased on the most recent study.. Central and peripheral airways are patent. Mediastinum: Heart size is normal, without pericardial effusion. No mediastinal or hilar adenopathy. Thoracic aorta is normal in caliber and enhancement. Esophagus is normal in caliber, without hiatal hernia. Bones and chest wall: No suspicious bony lesions. Ribs and thoracic spine appear intact throughout. Thyroid gland appears normal where well seen. . No axillary or supraclavicular adenopathy. Abdomen: Visualized upper abdominal solid organs appear normal in the early arterial phase of enhancement. IMPRESSION: Moderate right subpulmonic pleural effusion has mildly increased. Persistent fibrotic change in the perihilar right lung parenchyma is again noted in addition to atelectasis, in a pattern that may reflect sequela of radiation therapy to a perihilar lung mass. No new mass lesion is found. Minimal posterior left pleural effusion incidentally noted. No pulmonary embolus seen. Dictated by: Jay Howell M.D. on 11/05/2020 at 12:44 Approved by: Jay Howell M.D. on 11/05/2020 at 12:48
--- NOTE | 2020-11-05 13:08 | DI.US.S_ITS ---
PROCEDURE: US THORACENTESIS INDICATIONS: RIGHT PLEURAL EFFUSION INR 1.3 TECHNIQUE: The indications, alternatives, benefits, risks, and complications of the procedure were explained to the patient. Written informed consent was obtained and placed in the chart. The chest was examined sonographically, and an appropriate site was chosen for thoracentesis. The skin was prepared and draped in the usual sterile fashion, and 1% lidocaine was infiltrated from the skin down through the pleural surface. A 19-gauge catheter-covered needle was then introduced into the pleural space, the catheter was advanced and the needle was withdrawn, and thereafter pleural fluid was aspirated. The catheter was then removed and a dressing was applied. COMPARISON: None. FINDINGS: Access site: Right hemithorax. Needle: One-Step centesis catheter with introducer needle. Fluid volume and description: 1260 cc of serous fluid Fluid sent for diagnostic testing: As requested Medications: 1% lidocaine for local anaesthesia. Complications: None; post-procedural chest radiograph is pending to assess for pneumothorax. IMPRESSION: Successful ultrasound-guided thoracentesis. Dictated by: Hayden Gonzalez M.D. on 11/05/2020 at 17:09 Approved by: Hayden Gonzalez M.D. on 11/05/2020 at 17:12
--- NOTE | 2020-11-05 15:40 | PC.NURSE ---
Pt taken to get thoracentesis at 1540.
--- NOTE | 2020-11-05 16:05 | DI.RAD.S_ITS ---
PROCEDURE: XR CHEST 1V INDICATIONS: POST THORACENTESIS TECHNIQUE: One view of the chest was acquired. COMPARISON: [facility], , XR CHEST 2V, 11/05/2020, 9:23. FINDINGS: Surgical changes and devices: Right shoulder arthroplasty and right chest port appear unchanged. Lungs and pleura: Small residual right pleural effusion with adjacent atelectasis. No pneumothorax identified. Patchy bibasilar opacities grossly unchanged. Mediastinum: Mediastinal contours appear normal. Heart size is normal. Bones and chest wall: No suspicious bony lesions. Overlying soft tissues appear unremarkable. IMPRESSION: No pneumothorax, status post right thoracentesis. Dictated by: Hayden Gonzalez M.D. on 11/05/2020 at 16:52 Approved by: Hayden Gonzalez M.D. on 11/05/2020 at 16:53
[2020-11-05 16:33] LABS: Glucose Body Fluid 88 mg/dL; LDH Body Fluid 128 U/L; pH Body Fluid 8 pH
[2020-11-05 16:38] LABS: Body Fluid Tot Nucleated Cells 220 /uL
[2020-11-05 16:45] LABS: Body Fluid Appearance CLEAR; Body Fluid Clotted? NO CLOTS PRESENT; Body Fluid Color YELLOW; Body Fluid Red Blood Cells 230 /uL
[2020-11-05 17:01] LABS: Eosinophils Body Fluid 0 %; Mononuclear WBC Body Fluid 70 %; Polynuclear WBC Body Fluid 10 %
[2020-11-05 17:02] LABS: Other Cells Body Fluid 20 %
[2020-11-05 19:07] LABS: Lactate Dehydrogenase 396 U/L (313-618)
== END 2020-11-05 17:25 | disposition home or self-care (01) ==
PROVIDERS: Emergency Provider Emergency Medicine; PCP Internal Medicine
DX: J90 Pleural effusion, not elsewhere classified (principal); R09.02 Hypoxemia; R05 Cough; J44.9 Chronic obstructive pulmonary disease, unspecified; Z20.828 Contact with and (suspected) exposure to other viral communicable diseases; Z85.53 Personal history of malignant neoplasm of renal pelvis
CPT/HCPCS: 32555; 36415; 71045; 71046; 71275; 80053; 82945; 83605; 83615; 83986; 85025; 85610; 85730; 87070; 87075; 87205; 87635; 89051; 93005; 99284; Q9967

== ENCOUNTER → 2020-11-25 10:41 | Outpatient (ROUT) | payer MEDICARE, BC, SELFPAY ==
[2020-11-25 11:10] LABS: INR 1.5 (0.9-1.3); Prothrombin Time 17.6 SECONDS (10.1-12.7)
== END ==
PROVIDERS: PCP Internal Medicine; Visit Provider Internal Medicine
DX: I48.91 Unspecified atrial fibrillation (principal)
CPT/HCPCS: 85610

== ENCOUNTER → 2021-07-08 09:33 | Outpatient (CLI) | payer MEDICARE, BC, SELFPAY ==
--- NOTE | 2021-07-08 09:37 | DI.CT.S_ITS ---
PROCEDURE: CT CHEST WO CON INDICATIONS: Follow-up lung cancer TECHNIQUE: Noncontrast 5 mm thick sections acquired from the pulmonary apices to the posterior costophrenic angles. 1 mm lung window, 5 mm thick coronal and sagittal and 7 mm axial MIP reformats were then acquired. For radiation dose reduction, the following was used: automated exposure control, adjustment of mA and/or kV according to patient size. COMPARISON: [facility], CT, CT CHEST ABD PEL WO CON, 08/11/2019, 10:00. [facility], CT, CT ANGIO CHEST PE PROTOCOL, 11/05/2020, 12:09. [facility], CT, CT CHEST WO CON, 07/30/2020, 11:52. FINDINGS: Image quality: Excellent. Lungs and pleura: Confluent right perihilar tissue surrounding the airways. Innumerable nodules throughout the anterior right upper lobe. Bronchial wall thickening, patchy right upper lobe nodule, and interstitial thickening throughout the right lung. 5 atelectatic change in the lingula. Decreased ground-glass opacity the left mid lung. Occasional subpleural upper lobe ground-glass nodules on the left. Moderate-sized right pleural effusion layering dependently. Tiny left pleural effusion. Mediastinum: Heart size is normal. Mild to moderate coronary artery calcification. No pericardial effusion. Calcified right hilar and mediastinal lymph nodes. No mediastinal adenopathy by size criteria. Thoracic aorta and central pulmonary arteries are normal in size. Moderate aortic calcification throughout. Esophagus is normal in caliber. No hiatal hernia. Bones and chest wall: Left IJ dialysis catheter. No suspicious bony lesions. Chronic T11 fracture. No axillary or supraclavicular adenopathy by size criteria. Thyroid gland partially imaged and appears grossly normal. Right shoulder arthroplasty change. . Abdomen: Possible left anterior mid pole renal mass. Visualized upper abdominal solid organs and bowel loops appear otherwise normal in the absence of contrast. IMPRESSION: 1. Slight increase in size of right pleural effusion and decreased size of trace left effusion. 2. Confluent right perihilar soft tissue and bronchial wall thickening. Without the aid of IV contrast, the extent of any neoplastic change is difficult to determine. This appears grossly similar compared to the prior study. 3. Innumerable tiny nodules in the upper lobes, right greater than left, and interstitial thickening to a mild degree are stable. There is improved aeration in the left lung and decreased ground-glass opacity. 4. Evidence of remote granulomatous disease. 5. Possible left renal mass. Similar contour compared to prior study 08/11/19. IV contrast is recommended for further characterization. Dictated by: Mabel Weiss M.D. on 07/08/2021 at 11:44 Approved by: Mabel Weiss M.D. on 07/08/2021 at 12:11
== END ==
PROVIDERS: PCP Internal Medicine; Referring Provider Internal Medicine; Visit Provider Internal Medicine
DX: C34.90 Malignant neoplasm of unspecified part of unspecified bronchus or lung (principal); J90 Pleural effusion, not elsewhere classified; R91.8 Other nonspecific abnormal finding of lung field; I25.10 Atherosclerotic heart disease of native coronary artery without angina pectoris
CPT/HCPCS: 71250

== ENCOUNTER → 2021-07-22 15:55 | Outpatient (ROUT) | payer MEDICARE, BC, SELFPAY ==
[2021-07-22 16:09] LABS: INR 1.2 (0.9-1.3); Prothrombin Time 13.8 SECONDS (10.1-12.7)
== END ==
PROVIDERS: PCP Internal Medicine; Visit Provider Internal Medicine
DX: Z79.01 Long term (current) use of anticoagulants (principal)
CPT/HCPCS: 85610

== ENCOUNTER → 2021-09-30 14:43 | Outpatient (ROUT) | payer MEDICARE, BC, SELFPAY ==
[2021-09-30 14:56] LABS: INR 1.3 (0.9-1.3)
== END ==
PROVIDERS: PCP Internal Medicine; Visit Provider Internal Medicine
DX: Z79.01 Long term (current) use of anticoagulants (principal); I48.91 Unspecified atrial fibrillation
CPT/HCPCS: 85610

== ENCOUNTER 2021-10-11 12:06 | Emergency (ER) | payer MEDICARE, BC, SELFPAY ==
[2021-10-11] VITALS (11 sets, daily range): BP systolic 115–143; BP diastolic 58–64; PULSE 77–96; RESP 16–18; TEMP 36.1; O2SAT 95–100; BMI 24.2
--- NOTE | 2021-10-11 13:16 | DI.US.S_ITS ---
PROCEDURE: US EXTREMITY NONVASC UPPER LT INDICATIONS: FISTULA SURGERY 1 DAY AGO; POSSIBLE HEMATOMA, ANEURSYM TECHNIQUE: Real-time scanning was performed of the left antecubital fossa region, with image documentation. COMPARISON: None. FINDINGS: Ultrasound evaluation in the area of clinical concern in the left antecubital fossa region demonstrates subcutaneous edema. No discrete hematoma collection or pseudoaneurysm identified. IMPRESSION: 1. No discrete hematoma collection or pseudoaneurysm identified in the area of clinical concern. Dictated by: Rivera Clarke M.D. on 10/11/2021 at 14:17 Approved by: Rivera Clarke M.D. on 10/11/2021 at 14:19
--- NOTE | 2021-10-11 13:18 | ED.EXTPRO ---
HPI - Extremity Problem General Chief complaint: Extremity Problem,Nontraumatic Stated complaint: LT HAND NUMB POST ARM SURGERY 10/10 Time Seen by Provider: 10/11/21 13:11 Source: patient Mode of arrival: Ambulatory Limitations: no limitations History of Present Illness HPI Narrative: 81 Female history of diabetes on dialysis, transitional cell carcinoma of renal pelvis and non-small cell lung cancer presenting today status post day 1. After fistula placed in left arm. She states last night she noticed was numb and tingly. Today she noticed it was a little bit blue. She denies any weakness. She does have a sore arm but understands she had surgery yesterday expect to be sore. No fever or chills. She is able to move all fingers. No significant swelling. She has no headache no chest pain or palpitations. She had on a very tight Moi wrap which was placed after surgery. She actually did removed it at noon and having increased feeling in her finger tips but she still has some numbness and tingling that comes and goes. Related Data Home Medications Medication Instructions Recorded Confirmed Disabled Parking Permit 1 ea MISCELLANEOUS DIRECTED 06/28/18 11/13/20 Walker: Heavy Duty Front Wheeled 1 units MISCELLANEOUS DIRECTED 06/28/18 11/13/20 cholecalciferol (vitamin D3) 25 2,000 unit PO DAILY 06/28/18 11/13/20 mcg (1,000 unit) capsule (Vitamin D3) metoprolol tartrate 25 mg tablet 100 mg PO BID 06/27/19 11/13/20 multivitamin 1 cap PO QAM 06/27/19 11/13/20 warfarin 5 mg tablet 2.5 mg PO 5XW 07/06/19 11/13/20 warfarin 5 mg tablet 5 mg PO 2XW 07/06/19 11/13/20 levothyroxine 25 mcg tablet 50 mcg PO QAM 08/09/19 11/13/20 amiodarone 200 mg tablet 100 mg PO DAILY 09/06/19 11/13/20 sevelamer carbonate 800 mg tablet 800 mg PO TID 09/24/20 11/13/20 furosemide 20 mg tablet 20 mg PO DAILY 11/13/20 11/13/20 Allergies Allergy/AdvReac Type Severity Reaction Status Date / Time ciprofloxacin [From Cipro] Allergy Severe severe Verified 12/04/21 12:27 itching erythromycin base Allergy Mild nausea Verified 10/11/21 12:27 [ERYTHROMYCIN BASE] Review of Systems Constitutional Comments: GENERAL: Denies chills, fatigue, malaise, fever, sweats, travel HEENT: Denies sinus pain, ear pain, sore throat, difficulty swallowing, neck pain RESPIRATORY: Denies dyspnea, cough, wheezing, hemoptysis, sputum. CARDIOVASCULAR: Denies chest pain, palpitations, orthopnea, edema GASTROINTESTINAL: Denies nausea, vomiting, abdominal pain, diarrhea, constipation, melena. : Denies dysuria, frequency, incontinence, hematuria, urinary retention, flank pain. MUSCULOSKELETAL: see HPI SKIN: No rash, no erythema, no pruritus NEUROLOGIC: Denies weakness, dizziness, headache, numbness, change in speech, confusion PSYCHIATRIC: No concerning psychosocial issues. 12 point review of systems is negative except for those stated above and HPI Patient History Medical History Acne Cataract (~1994) COPD (chronic obstructive pulmonary disease) Foot pain (~2008) Hemorrhoid Hepatitis History of malignant neoplasm of renal pelvis History of nephrectomy, unilateral Hypertension (~1988) Kidney failure Lung nodule Measles (~1961) Mumps (~1959) Osteopenia Restless leg syndrome (~2008) Seasonal allergies Skin cancer Tinnitus (~1955) Transitional cell carcinoma of kidney Surgical History Anesthesia History of tonsillectomy (~1943) Status post tubal ligation (~1974) Family History Brother Age: 78 Diabetes mellitus Heart disease Brother Age: 72 Diabetes mellitus Heart disease Hypertension Stroke Father Skin cancer Hypertension Heart disease Cancer Stroke Mother Skin cancer Diabetes mellitus Hypertension Osteoporosis Gallstones Cancer Stroke Social History marital status: household members: spouse Smoking Status: Former smoker alcohol intake: current Smoking Status: Former smoker alcohol intake frequency: 3 or more drinks per day Substance Use Type: does not use Exam Initial Vital Signs Initial Vital Signs: Vital Signs Temperature 97.0 F L 10/11/21 12:27 Pulse Rate 96 H 10/11/21 12:27 Respiratory Rate 18 10/11/21 12:27 Blood Pressure 115/58 L 10/11/21 12:27 Pulse Oximetry 98 10/11/21 12:27 GENERAL:Alert 81 year female no acute distress. HEENT: Head atraumatic,EOMI, pupils reactive, face symmetric, moist mucous membranes CARDIOVASCULAR: Regular rate and rhythm without murmurs, rubs or gallops. RESPIRATORY: Breath sounds equal bilaterally, no wheezes rales or rhonchi. EXTREMITIES: Normal range of motion, no clubbing or edema. Neurovascularly intact. left arm , thrill present in fistula, strong radial and ulnar pulse, hand is slightly cyanotic NEUROLOGICAL: Alert and oriented x4.Normal gait and speech. SKIN: Incision site on left arm is oozing but good skin approximation sutures in place Course Orders Ordered: ED Orders 10/11/21 13:16 US extremity nonvasc upper lt Stat Vital Signs Vital signs: Vital Signs - 8 hr 10/11/21 12:27 10/11/21 12:55 10/11/21 12:56 Temperature 97.0 F L Pulse Rate 96 H 81 81 Pulse Rate [Left Radial] Respiratory Rate 18 18 Blood Pressure 115/58 L 131/60 Pulse Oximetry 98 95 99 10/11/21 13:00 10/11/21 13:10 10/11/21 13:30 Temperature Pulse Rate 80 79 Pulse Rate [Left Radial] 78 Respiratory Rate Blood Pressure 121/58 L 133/60 Pulse Oximetry 99 99 10/11/21 14:00 10/11/21 14:30 10/11/21 14:31 Temperature Pulse Rate 81 77 80 Pulse Rate [Left Radial] Respiratory Rate Blood Pressure 143/64 H 129/63 Pulse Oximetry 99 100 99 10/11/21 15:00 10/11/21 15:30 Temperature Pulse Rate 81 81 Pulse Rate [Left Radial] Respiratory Rate 16 Blood Pressure 138/61 137/61 Pulse Oximetry 98 98 MDM - Extremity (Nontraumatic) Imaging Data US ex: Radiologist's Impression: PROCEDURE:? US EXTREMITY NONVASC UPPER LT ? INDICATIONS:? FISTULA SURGERY 1 DAY AGO; POSSIBLE HEMATOMA, ANEURSYM ? TECHNIQUE:? Real-time scanning was performed of the left antecubital fossa region, with image documentation.? ? COMPARISON:? None. ? FINDINGS:? ? Ultrasound evaluation in the area of clinical concern in the left antecubital fossa region demonstrates subcutaneous edema.? No discrete hematoma collection or pseudoaneurysm identified. ? IMPRESSION:? ? 1. No discrete hematoma collection or pseudoaneurysm identified in the area of clinical concern. ? ? Dictated by: Rivera Clarke M.D. on 10/11/2021 at 14:17 MDM Narrative Medical decision making narrative: I think patient is numbness and tingling of her left arm it is secondary to an Moi wrap that was placed too tight. She had sanders on her arm. Once that has been removed pulses have been much easier to find a. Nursing had difficulty initially. She really has no weakness. She states the numbness and tingling is kind of intermittent. I think this will improve over time. She certainly has no other signs or symptoms of stroke. No complication of the fistula. Bleeding has been controlled with Surgicel and Dermabond. She has Coumadin listed as a medication however she has been off of it because of her surgery and she has not yet restarted it. Cassy BRAXTON, vascular surgery consulted updated on patient's symptoms. At this time recommend super glue for the bleeding Patient has Surgicel and pressure applied which actually did stop the bleeding which point Dermabond was placed with another dressing of Surgicel and Coban. Loosely applied. She has strong distal pulses with dressing with on Discharge Plan Departure Patient Disposition: Home Clinical Impression: Post-op bleeding, Numbness and tingling in left hand Instructions: Peripheral Neuropathy Activity Restrictions/Additional Instructions: *You have been diagnosed with tingling of left hand and bleeding *What to do: I believe that the tingling of the left hand is from the Mio bandage being too tight. Please keep this much looser bandage on at least until before bed tonight possibly to tomorrow morning. Then please follow instructions from surgery *Continue to take medications as directed *Follow up with your primary care provider in 2-3 days *Return to ER if you should have increasing weakness, numbness, tingling, bleeding or any new, worsening or concerning symptoms Prescriptions: No Action Disabled Parking Permit 1 ea miscellaneous DIRECTED 0RF Walker: Heavy Duty Front Wheeled 1 units miscellaneous DIRECTED 0RF cholecalciferol (vitamin D3) [Vitamin D3] 1,000 unit Capsule 2,000 unit PO DAILY 0RF metoprolol tartrate 25 mg tablet 100 mg PO BID 0RF multivitamin Capsule 1 cap PO QAM 0RF levothyroxine 25 MCG tablet 50 mcg PO QAM 0RF amiodarone 200 mg tablet 100 mg PO DAILY 0RF Label Comments: PT TO VERIFY DOSE furosemide 20 mg Tablet 20 mg PO DAILY 0RF warfarin 5 mg tablet 5 mg PO 2XW 0RF Label Comments: TK 1 T PO DAILY ALTERNATING WITH 1/2 T UTD warfarin 5 mg tablet 2.5 mg PO 5XW 0RF Label Comments: TK 1 T PO DAILY ALTERNATING WITH 1/2 T UTD sevelamer carbonate 800 mg tablet 800 mg PO TID 0RF Rx Instructions: must administer with a meal/food Referrals: Bhavani Ledesma ARNP [Primary Care Provider] -
== END 2021-10-11 15:50 | disposition home or self-care (01) ==
PROVIDERS: Emergency Provider Emergency Medicine; PCP Internal Medicine
DX: L76.22 Postprocedural hemorrhage of skin and subcutaneous tissue following other procedure (principal); G97.82 Other postprocedural complications and disorders of nervous system; Z87.891 Personal history of nicotine dependence
CPT/HCPCS: 76882; 99281; 99284

== ENCOUNTER 2021-10-17 13:40 | Emergency (ER) | payer MEDICARE, BC, SELFPAY ==
[2021-10-17 13:46] VITALS: BP 142/64; PULSE 99; RESP 14; TEMP 36.1; O2SAT 95; BMI 24.7
[2021-10-17 15:00] VITALS: BP 180/70; PULSE 68; RESP 18; O2SAT 97
--- NOTE | 2021-10-17 15:23 | DI.US.S_ITS ---
PROCEDURE: US PERIPH VENOUS UP EXTREM LT INDICATIONS: SWELLING. FISTULA SURGERY 1 WEEK AGO. TECHNIQUE: Real-time imaging, as well as color and pulse Doppler interrogation, was performed of the left upper extremity deep veins from the inferior neck to the antecubital fossa. COMPARISON: None. FINDINGS: The internal jugular vein, visualized portions of the subclavian vein, axillary, and brachial veins are free of intraluminal thrombus. Where physically possible, the veins are normally compressible. Color and pulse Doppler demonstrate normal intraluminal flow, with expected phasicity and pulsatility. Additional scanning of the cephalic and basilic veins of the superficial system demonstrate normal compressibility, without thrombus. IMPRESSION: Negative for deep venous thrombosis. Dictated by: Michele Aldridge M.D. on 10/17/2021 at 15:35 Approved by: Michele Aldridge M.D. on 10/17/2021 at 15:35
--- NOTE | 2021-10-17 15:26 | ED.EXTPRO ---
HPI - Extremity Problem General Chief complaint: Extremity Problem,Nontraumatic Stated complaint: surgery on Lt arm Fri swollen sent fr clinic Time Seen by Provider: 10/17/21 14:57 Source: patient Mode of arrival: Ambulatory History of Present Illness HPI Narrative: The patient has a historyof diabetes on dialysis, transitional cell carcinoma of renal pelvis and non-small cell lung cancer. She had surgery 1 week ago for fistula formation for dialysis in her left arm. She was seen here 6 days ago for ultrasound, no hematoma or aneurysm was discovered she was seen at a walk-in clinic prior to arrival here, there is ongoing/additional swelling at the site. She was referred here for further evaluation. She has pain and swelling in the left distal biceps at the surgical site. There is no erythema at the site. There is no drainage from the site. She has no fever. She has no chest pain, shortness of breath, cough or hemoptysis. She has occasional tingling left hand, none at this time. She has no numbness or weakness in the left hand. She is right-hand dominant. Related Data Home Medications Medication Instructions Recorded Confirmed Disabled Parking Permit 1 ea MISCELLANEOUS DIRECTED 06/28/18 10/17/21 Walker: Heavy Duty Front Wheeled 1 units MISCELLANEOUS DIRECTED 06/28/18 10/17/21 cholecalciferol (vitamin D3) 25 2,000 unit PO DAILY 06/28/18 10/17/21 mcg (1,000 unit) capsule (Vitamin D3) metoprolol tartrate 25 mg tablet 100 mg PO BID 06/27/19 10/17/21 multivitamin 1 cap PO QAM 06/27/19 10/17/21 warfarin 5 mg tablet 2.5 mg PO 5XW 07/06/19 10/17/21 warfarin 5 mg tablet 5 mg PO 2XW 07/06/19 10/17/21 levothyroxine 25 mcg tablet 50 mcg PO QAM 08/09/19 10/17/21 amiodarone 200 mg tablet 100 mg PO DAILY 09/06/19 10/17/21 sevelamer carbonate 800 mg tablet 800 mg PO TID 09/24/20 10/17/21 furosemide 20 mg tablet 20 mg PO DAILY 11/13/20 10/17/21 Allergies Allergy/AdvReac Type Severity Reaction Status Date / Time ciprofloxacin [From Cipro] Allergy Severe severe Verified 10/17/21 13:46 itching erythromycin base Allergy Mild nausea Verified 10/17/21 13:46 [ERYTHROMYCIN BASE] Review of Systems Constitutional Constitutional: Reports as per HPI, Denies chills, Denies fever(s) and Denies weakness ENT Ears, Nose, Mouth, and Throat: Denies dizziness and Denies sore throat Cardiovascular Cardiovascular: Denies chest pain, Denies rapid heart rate, Denies pedal edema, Denies edema and Denies dyspnea Respiratory Respiratory: Denies cough, Denies hemoptysis and Denies dyspnea Gastrointestinal Gastrointestinal: Denies abdominal pain, Denies nausea and Denies vomiting Genitourinary Genitourinary: Denies dysuria Musculoskeletal Musculoskeletal: Denies numbness Integumentary/Breasts Comments: Left upper arm ecchymoses and swelling. Neurologic Neurologic: Reports as per HPI, Denies confusion, Denies dizziness, Denies numbness and Denies weakness Psychiatric Psychiatric: Denies confusion Hematologic/Lymphatic On Anticoagulants: Yes Allergic/Immunologic Allergic/Immunologic: Denies GI upset with certain foods Patient History Medical History Acne Cataract (~1994) COPD (chronic obstructive pulmonary disease) Foot pain (~2008) Hemorrhoid Hepatitis History of malignant neoplasm of renal pelvis History of nephrectomy, unilateral Hypertension (~1988) Kidney failure Lung nodule Measles (~1961) Mumps (~1959) Osteopenia Restless leg syndrome (~2008) Seasonal allergies Skin cancer Tinnitus (~1955) Transitional cell carcinoma of kidney Surgical History Anesthesia History of tonsillectomy (~1943) Status post tubal ligation (~1974) Family History Brother Age: 78 Diabetes mellitus Heart disease Brother Age: 72 Diabetes mellitus Heart disease Hypertension Stroke Father Skin cancer Hypertension Heart disease Cancer Stroke Mother Skin cancer Diabetes mellitus Hypertension Osteoporosis Gallstones Cancer Stroke Social History marital status: household members: spouse Smoking Status: Former smoker alcohol intake: current Smoking Status: Former smoker alcohol intake frequency: 3 or more drinks per day Substance Use Type: does not use Exam Initial Vital Signs Initial Vital Signs: Vital Signs Temperature 97.0 F L 10/17/21 13:46 Pulse Rate 99 H 10/17/21 13:46 Respiratory Rate 14 10/17/21 13:46 Blood Pressure 142/64 H 10/17/21 13:46 Pulse Oximetry 95 10/17/21 13:46 Const General: cooperative and comfortable HENMT Head: normocephalic and atraumatic Neck Neck: No JVD Resp Auscultation: clear to auscultation bilaterally Cardio Rate: regular rate Rhythm: regular rhythm Heart Sounds: S1 normal, S2 normal, no click, no gallops and no murmurs GI Palpation: soft Auscultation: normal bowel sounds Skin Other: Left arm ecchymoses with edema. Neuro General: patient alert, patient awake, patient oriented x3 and no focal motor deficits Extrem Other: Surgical site left Arm, sutures are in place. There is ecchymoses and edema adjacent to the operative site. There is no palpable thrill. Left radial pulse is normal. Range of motion left elbow is normal. Course Course Course Narrative: Ultrasound results are reviewed with the patient. The fistula appears to be intact without obvious complications. She is advised to follow up with her PCM. Orders Ordered: ED Orders 10/17/21 15:23 US periph venous up extrem lt Stat Vital Signs Vital signs: Vital Signs - 8 hr 10/17/21 13:46 10/17/21 15:00 10/17/21 16:45 Temperature 97.0 F L Pulse Rate 99 H 68 66 Respiratory Rate 14 18 Blood Pressure 142/64 H 180/70 H 143/65 H Pulse Oximetry 95 97 97 MDM - Extremity (Nontraumatic) Imaging Data US ex: Radiologist's Impression: [address] [address] Ultrasound Report Signed Patient: Radha Henry MR#: [id number] : 1940 Acct:[id number] Age/Sex: 81 / F Date of Service: 10/17/21 Loc: ED Accession Number: [id number] ?? Procedure: US periph venous up extrem lt Ordering Provider: Leo Garay MD PROCEDURE:? US PERIPH VENOUS UP EXTREM LT ? INDICATIONS:? SWELLING. FISTULA SURGERY 1 WEEK AGO. ? TECHNIQUE:? Real-time imaging, as well as color and pulse Doppler interrogation, was performed of the left upper extremity deep veins from the inferior neck to the antecubital fossa.? ? COMPARISON:? None. ? FINDINGS:? The internal jugular vein, visualized portions of the subclavian vein, axillary, and brachial veins are free of intraluminal thrombus.? Where physically possible, the veins are normally compressible.? Color and pulse Doppler demonstrate normal intraluminal flow, with expected phasicity and pulsatility.? Additional scanning of the cephalic and basilic veins of the superficial system demonstrate normal compressibility, without thrombus.? ? ? IMPRESSION:? ? Negative for deep venous thrombosis. ? ? Dictated by: Michele Aldridge M.D. on 10/17/2021 at 15:35 ? ? Approved by: Michele Aldridge M.D. on 10/17/2021 at 15:35?? Discharge Plan Departure Patient Disposition: Home Clinical Impression: Contusion Activity Restrictions/Additional Instructions: The left arm operative site has a lot of bruising, but ultrasound reveals the blood vessels are functioning normally and are intact Follow-up with your surgeon and follow-up with a PCM as scheduled. Return here as necessary Prescriptions: No Action Disabled Parking Permit 1 ea miscellaneous DIRECTED 0RF Walker: Heavy Duty Front Wheeled 1 units miscellaneous DIRECTED 0RF cholecalciferol (vitamin D3) [Vitamin D3] 1,000 unit Capsule 2,000 unit PO DAILY 0RF metoprolol tartrate 25 mg tablet 100 mg PO BID 0RF multivitamin Capsule 1 cap PO QAM 0RF levothyroxine 25 MCG tablet 50 mcg PO QAM 0RF amiodarone 200 mg tablet 100 mg PO DAILY 0RF Label Comments: PT TO VERIFY DOSE furosemide 20 mg Tablet 20 mg PO DAILY 0RF warfarin 5 mg tablet 5 mg PO 2XW 0RF Label Comments: TK 1 T PO DAILY ALTERNATING WITH 1/2 T UTD warfarin 5 mg tablet 2.5 mg PO 5XW 0RF Label Comments: TK 1 T PO DAILY ALTERNATING WITH 1/2 T UTD sevelamer carbonate 800 mg tablet 800 mg PO TID 0RF Rx Instructions: must administer with a meal/food Referrals: Bhavani Ledesma ARNP [Primary Care Provider] -
[2021-10-17 16:45] VITALS: BP 143/65; PULSE 66; O2SAT 97
== END 2021-10-17 17:11 | disposition home or self-care (01) ==
PROVIDERS: Emergency Provider Emergency Medicine; PCP Internal Medicine
DX: L76.32 Postprocedural hematoma of skin and subcutaneous tissue following other procedure (principal); Z87.891 Personal history of nicotine dependence
CPT/HCPCS: 93971; 99283; 99284

== ENCOUNTER → 2021-11-17 16:27 | Outpatient (ROUT) | payer MEDICARE, BC, SELFPAY ==
[2021-11-17 16:42] LABS: INR 1.7 (0.9-1.3); Prothrombin Time 19.7 SECONDS (10.1-12.7)
== END ==
PROVIDERS: PCP Internal Medicine; Visit Provider Internal Medicine
DX: I48.91 Unspecified atrial fibrillation (principal); Z79.01 Long term (current) use of anticoagulants
CPT/HCPCS: 85610